=== PATIENT | female | born 1940 | race Caucasian/White ===

== ENCOUNTER 2022-02-25 09:26 | Outpatient (CLI) | payer MEDICARE, SELFPAY ==
--- NOTE | ~2022-02-25 | XR_ITS ---
EXAMINATION: XR barium swallow DATE: 02/25/2022 10:47 INDICATION: Aspiration pneumonia TECHNIQUE: The patient drank thick barium and gas producing crystals. Fluoroscopic spot radiographs o f the hypopharynx and esophagus were obtained. Fluoroscopy exposure time was 0.9 minutes. A total of 681 images were recorded. COMPARISON: None. FINDINGS: Limited study as patient was in significant pain and unable to tolerate a limited periods of time sta nding or in the supine or right lateral decubitus positions. Study was terminated due to patient disc omfort prior to assessing for gastroesophageal reflux. The pharynx is symmetric and without evidence of mass lesion or mucosal irregularity. There is recurrent laryngeal penetration to the level of the vocal cords which is evident in real-time. Upon review of the images there didn't appear to be an epi sode of silent aspiration with trace amount of contrast extending along the inferior surface of the v ocal cords. The esophagus is normal without mass or stricture. Esophageal motility is normal. Small h iatal hernia with gastroesophageal junction proximally 5 cm above level of the diaphragm. IMPRESSION: 1. Pharyngeal dysphagia with recurrent laryngeal penetration the thickened barium and trace amount of silent aspiration. Would recommend further evaluation with a formal modified swallow study. 2. Limited esophagram due to significant patient back and hip pain in multiple positions precluding c ompletion of a standard examination. 3. Small sliding-type hiatal hernia. Reviewed, dictated and finalized at location B. IMPRESSION: 1. Pharyngeal dysphagia with recurrent laryngeal penetration the thickened maverick um and trace amount of silent aspiration. Would recommend further evaluation wi th a formal modified swallow study. 2. Limited esophagram due to significant patient back and hip pain in multiple positions precluding completion of a standard examination. 3. Small sliding-type hiatal hernia.
== END 2022-02-25 09:27 | disposition home or self-care (01) ==
LOC: CHSIMG 09:32
PROVIDERS: PCP Physician Assistant; Visit Provider Physician Assistant
DX: Z87.01 Personal history of pneumonia (recurrent) (principal)
CPT/HCPCS: 74220

== ENCOUNTER 2022-03-04 08:13 | Outpatient (CLI) | payer MEDICARE, SELFPAY ==
--- NOTE | ~2022-03-04 | XR_ITS ---
MODIFIED ESOPHAGRAM HISTORY: Aspiration pneumonia. Weakness with swallowing. Dysphagia. TECHNIQUE: Modified barium esophagram was performed on 03/04/2022. I administered fluoroscopy and perf ormed the exam with speech pathologist. Patient was seated for lateral fluoroscopic imaging for armani stion of thin liquids, pudding, solids and quantified amounts, followed by thin liquids in uncontroll ed amounts. This was recorded on tape. A single fluoroscopic spot image was also recorded. The DAP fo r this procedure was 2.4 Gycm2. The amount of fluoroscopy time used during this procedure was 2.5 min utes. FINDINGS: Oral stage: Adequate function. Pharyngeal stage: Reduced laryngeal elevation and tongue base retraction. There was laryngeal penetra tion with the majority of the bowels with 2 episodes of silent aspiration with small amount of thin l iquid contrast. Cervical/esophageal stage: Adequate function. IMPRESSION: Laryngeal penetration with 2 episodes of small amount of silent aspiration. Please corre late with speech pathologist findings and specific feeding recommendations. Reviewed, dictated and finalized at location B. IMPRESSION: Laryngeal penetration with 2 episodes of small amount of silent asp iration. Please correlate with speech pathologist findings and specific feedin g recommendations.
--- NOTE | 2022-03-04 11:42 | STOPEVAL ---
Thank you for referring Kelley Bird to [facility].? The patient was seen for a modified barium swallow study evaluation this date. Referring Physician Date Admitting Provider: Attending Provider: Surya Suárez, ANTHONY Referring Provider: MODIFIED BARIUM SWALLOW STUDY *ST Outpatient Evaluation Start: 03/04/22 10:37 Freq: Status: Active Protocol: Document 03/04/22 08:30 MJB (Rec: 03/04/22 11:39 MJB [id number]) Therapy Assessment Status Assessment Status Assessment Status Evaluation Outpatient Past Medical History Past Medical History Source of Past Medical History Patient,Family/Significant Other Neurological History Hx Neurological Disorders No Significant History Cardiovascular History Hx Cardiac Disorders No Significant History Respiratory History Hx Chronic Obstructive Pulmonary Disease Yes: Currently on oxygen (COPD) Gastrointestinal History Hx Hernia Yes: hiatal hernia Genitourinary History Hx Genitourinary Disorders No Significant History Musculoskeletal History Hx Musculoskeletal Disorders No Significant History Hematological History Hx Hematological Disorders No Significant History Endocrine History Hx Other Endocrine Disorders Yes: nodule on thyroid removed with extensive swelling post op HEENT History Hx HEENT Disorders No Significant History Integumentary History Hx Skin Disorders No Significant History Reproductive History Hx Reproductive Disorders No Significant History Psychosocial History Hx Psychiatric Disorders No Significant History Pain History Has Past Pain Affected Your Daily Life Yes: back pain Anesthesia History Hx Anesthesia Reactions No Significant History Evaluation Information Problem Diagnosis hx of aspiration pneumonia Onset 2018 Subjective Information Patient has had pneumonia very Query Text:As Reported By Patient/ frequently along with surgery Family to thyroid with significant swelling. Daughter reported that recently the patient was evaluated by home health ST and they recommended an MBS due to difficulty swallowing thin cold fluids. They voiced no concerns with swallowing solids. Prior Level of Function Prior Swallow Level Prior Intake Method Oral Prior Diet Regular (Level 7 Diet) Prior Liquid Consistency Thin (Level 0 Diet) Pain Assessment Timing of Pain Assessment Timing of Pain Assessmen
== END 2022-03-04 08:14 | disposition home or self-care (01) ==
LOC: CHSIMG 08:17
PROVIDERS: PCP Physician Assistant; Visit Provider Physician Assistant
DX: Z87.01 Personal history of pneumonia (recurrent) (principal)
CPT/HCPCS: 92611

== ENCOUNTER 2022-04-02 11:31 | Outpatient (CLI) | payer MEDICARE, SELFPAY ==
--- NOTE | ~2022-04-02 | XR_ITS ---
XR chest 2V DATE: 04/02/2022 12:11 INDICATION: Shortness of breath. Chest burning. History of aspiration pneumonia. TECHNIQUE: PA and lateral views COMPARISON: None FINDINGS: There is also interstitial tissues in the lower lung zones bilaterally which may be due to interstitial fibrotic change versus interstitial pneumonitis or aspiration pneumonitis. Heart size is borderline. Aortic arch calcification and mild aortic unfolding. No pleural effusion or pulmonary vascular congestion or pneumothorax. Diffuse osteopenia. IMPRESSION: Increased interstitial prominence in the lower lung zones which may be due to interstitia l fibrotic change, interstitial pneumonitis or aspiration pneumonitis. Borderline heart size Aortic atherosclerosis Osteopenia Reviewed, dictated and finalized at location B. IMPRESSION: Increased interstitial prominence in the lower lung zones which may be due to interstitial fibrotic change, interstitial pneumonitis or aspiration pneumonitis. Borderline heart size Aortic atherosclerosis Osteopenia
--- NOTE | ~2022-04-02 | XR_ITS ---
XR abdomen obstructive series DATE: 04/02/2022 12:11 INDICATION: Constipation. Weakness. TECHNIQUE: Supine and upright AP views COMPARISON: None FINDINGS: Surgical clips, right upper quadrant, consistent with cholecystectomy. The psoas shadows are intact. No visceromegaly is detected. Nonspecific bowel gas pattern without suyapa dence of obstruction. No intraperitoneal free air is detected. Bilateral prominent hip osteoarthritis, greater on the right. Degenerative change of the thoracic and lumbar spine. IMPRESSION: Status post cholecystectomy Nonspecific abdomen Prominent bilateral hip osteoarthritis, greater on the right Reviewed, dictated and finalized at Location A. Reviewed, dictated and finalized at location B.
== END 2022-04-02 11:32 | disposition home or self-care (01) ==
LOC: CHSIMG 11:33
PROVIDERS: PCP Physician Assistant; Visit Provider Physician Assistant
DX: Z87.01 Personal history of pneumonia (recurrent) (principal); K59.00 Constipation, unspecified
CPT/HCPCS: 71046; 74019

== ENCOUNTER 2022-05-01 09:55 | Outpatient (RCR) | payer MEDICARE, SELFPAY ==
--- NOTE | 2022-05-01 13:46 | STOPEVAL ---
Thank you for referring Kelley Bird to [facility].? The patient is scheduled to be seen for therapy? 1x/week for 10 sessions. Please review, sign, date and return this plan of care GERONIMO. I agree with and certify that the following plan of care is medically necessary. Referring Physician Date Admitting Provider: Attending Provider: Isiah Bowles, Referring Provider: [facility] Outpatient Evaluation Start: 05/01/22 12:46 Freq: Status: Active Protocol: Document 05/01/22 10:00 MELANIE (Rec: 05/01/22 13:46 MELANIE [id number]) Therapy Assessment Status Assessment Status Assessment Status Evaluation Outpatient Past Medical History Past Medical History Source of Past Medical History Patient,Family/Significant Other Neurological History Hx Neurological Disorders No Significant History Cardiovascular History Hx Cardiac Disorders No Significant History Respiratory History Hx Chronic Obstructive Pulmonary Disease Yes: Currently on oxygen (COPD) Gastrointestinal History Hx Gastroesophageal Reflux Disease Yes Hx Hernia Yes: hiatal hernia Genitourinary History Hx Genitourinary Disorders No Significant History Musculoskeletal History Hx Musculoskeletal Disorders No Significant History Hematological History Hx Hematological Disorders No Significant History Endocrine History Hx Other Endocrine Disorders Yes: nodule on thyroid removed with extensive swelling post op HEENT History Hx HEENT Disorders No Significant History Integumentary History Hx Skin Disorders No Significant History Reproductive History Hx Reproductive Disorders No Significant History Psychosocial History Hx Psychiatric Disorders No Significant History Pain History Has Past Pain Affected Your Daily Life Yes: back pain Anesthesia History Hx Anesthesia Reactions No Significant History Evaluation Information Problem Diagnosis aspiration pneumonia Onset Subjective Information Patient was referred for ST Query Text:As Reported By Patient/ due to continuous difficulty Family swallowing and repeated pneumonia. Patient was seen for an MBS March 04 and presented with laryngeal penetration with thin and nectar fluids. Patient presented with aspiration 1x with thin fluid uncontrolled. Pain Assessment Timing of Pain Assessment Timing of Pain Assessment Assessment Self Report Self Report Pain Level 0 Pain Score Pain Score 0: S
--- NOTE | 2022-05-19 13:57 | PCSTNOTE ---
Patient called & cancelled scheduled appointment this date
--- NOTE | 2022-06-17 11:52 | PCSTNOTE ---
Patient called & cancelled scheduled appointment this date
--- NOTE | 2022-06-23 13:30 | PCSTNOTE ---
Patient did not show up for scheduled appointment this date.
--- NOTE | 2022-07-15 14:45 | PCSTNOTE ---
Voicemail left regarding continued care or to discharge patient from speech therapy.
--- NOTE | 2023-04-14 13:45 | BUSTOPDC ---
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 Patient and family reported that the patient has had difficulty swallowing for years now and has had pneumonia very often. She also has a history of a thyroid nodule with significant problems post surgery. Patient was seen for a total of 3 treatment sessions for the treatment of Dysphagia and then stopped coming. Phone call placed to patient and voicemail was left regarding plan but they did not return the call. Discharge patient from at this time.
== END 2022-06-23 23:59 | disposition home or self-care (01) ==
LOC: CHSST 09:55
PROVIDERS: PCP Family Medicine; Visit Provider Family Medicine
DX: Z87.01 Personal history of pneumonia (recurrent) (principal)
CPT/HCPCS: 92526; 92610

== ENCOUNTER 2023-02-27 22:32 | Emergency (ER) | payer MEDICARE, SELFPAY ==
[2023-02-27 22:34] VITALS: BP 144/69; PULSE 95; RESP 16; TEMP 36.9; O2SAT 93
--- NOTE | 2023-02-27 23:05 | ED.GENADULT ---
HPI - General Adult General Chief complaint: Eye Problems Stated complaint: Eye irritation Time Seen by Provider: 02/27/23 23:00 History of Present Illness HPI narrative: The patient is an 82-year-old woman with History of ankylosing spondylitis, COPD hypertension and ulcerative colitis per she was at the chiropractor today. She was face down on a table and then after she finished her session she noticed that her eyes started bothering her, with mucus drainage. The mucous drainage has continued from both eyes, right and left, right worse than left, this evening. She has been applying Refresh eye drops into both eyes. She has been rubbing her eyes since that time. The redness and mucous discharge has increased over the course of the evening. No blurred vision. No headache. No fevers. No other symptoms. Related Data Home Medications Medication Instructions Recorded Confirmed ezetimibe 10 mg tablet 10 mg PO DAILY 01/29/23 02/27/23 hydrochlorothiazide 25 mg tablet 25 mg PO DAILY 01/29/23 02/27/23 hydroxychloroquine 200 mg tablet 200 mg PO BID 01/29/23 02/27/23 losartan 25 mg tablet 25 mg PO DAILY 01/29/23 02/27/23 multivitamin 1 tablet PO DAILY 01/29/23 02/27/23 omega 0-vxk-xvd-fish oil 60 mg-90 1 cap PO DAILY 01/29/23 02/27/23 mg-500 mg capsule (Fish Oil) omeprazole 20 mg capsule,delayed 20 mg PO BID 01/29/23 02/27/23 release spironolactone 25 mg tablet 25 mg PO DAILY 01/29/23 02/27/23 ezetimibe 10 mg tablet 10 mg PO DAILY 02/27/23 02/27/23 Allergies Allergy/AdvReac Type Severity Reaction Status Date / Time aluminum Allergy Unknown Rash Verified 02/27/23 22:50 Review of Systems Review of Systems: All systems reviewed & are unremarkable except as noted in HPI and below Constitutional: Constitutional: Denies chills, Denies excessive sweating, Denies fatigue, Denies fever(s), Denies headache(s) and Denies weakness Eyes: Eyes: Denies blind spots, Denies blurry vision, Denies exophthalmos, Denies change in vision, Denies diplopia, Reports eye discharge, Reports irritation, Reports itchy eyes, Denies loss of vision and Denies photophobia ENT: Denies dysphagia, Denies dizziness, Denies headache(s), Denies lip swelling, Denies nasal congestion, Denies sore throat and Denies tongue swelling Cardiovascular: Cardiovascular: Denies chest pain, Denies syncope, Denies rapid heart rate and Denies dyspnea Respiratory: Respiratory: Denies cough, Denies dyspnea and Denies wheezing Gastrointestinal: Gastrointestinal: Denies abdominal pain, Denies constipation, Denies dysphagia, Denies diarrhea, Denies nausea and Denies vomiting Genitourinary: Genitourinary: Denies hematuria, Denies urinary frequency, Denies dysuria and Denies urinary urgency Musculoskeletal: Musculoskeletal: Denies back pain, Denies myalgias, Denies arthralgias, Denies joint swelling and Denies numbness Integumentary/Breasts: Skin/Breast: Denies pruritus, Denies erythema and Denies rash Neurologic: Denies confusion, Denies dizziness, Denies syncope, Denies headache(s), Denies focal weakness, Denies numbness and Denies weakness Psychiatric: Psychiatric: Denies anxiety and Denies confusion Endocrine: Endocrine: Denies excessive sweating and Denies fatigue Hematologic/Lymphatic: Hematologic/Lymphatic: Denies easy bleeding and Denies easy bruising Allergic/Immunologic: Allergic/Immunologic: Denies lip swelling, Denies tongue swelling and Denies wheezing PMFSH Past Medical History Medical History Ankylosing spondylitis COPD (chronic obstructive pulmonary disease) Hx of acute arthritis Hypertension Ulcerative colitis Family History Family History Mother Family history of osteoporosis Family history of Parkinson's disease Sibling Family history of pancreatic cancer Family history of malignant neoplasm of urinary bladder Social History Social History (
[2023-02-27] MEDS: TOBRAMYCIN SULFATE 0.3% OPHTH SOLN 5 ML 2 DROP EACH EYE (23:32)
[2023-02-28 00:06] VITALS: BP 142/71; PULSE 81; RESP 18; TEMP 36.8; O2SAT 97
== END 2023-02-28 00:10 | disposition home or self-care (01) ==
PROVIDERS: Emergency Provider Emergency Medicine; PCP Physician Assistant
DX: H10.9 Unspecified conjunctivitis (principal); I10 Essential (primary) hypertension; J44.9 Chronic obstructive pulmonary disease, unspecified
CPT/HCPCS: 99283; A9270

== ENCOUNTER 2024-10-14 16:03 | Emergency (ER) | payer MEDICARE, SELFPAY ==
[2024-10-14] VITALS (16 sets, daily range): BP systolic 103–137; BP diastolic 54–72; PULSE 72–98; RESP 18–23; TEMP 37.1; O2SAT 93–100
--- NOTE | ~2024-10-14 | XR_ITS ---
XR chest 1V portable 10/14/2024 16:24 Indication: Cough for 2 weeks Procedure: AP portable chest Comparison: 04/02/2022 Findings: Cardiomegaly. Heart size normal. Right basilar airspace disease is present which may repres ent atelectasis or developing pneumonia. Impression: 1: Right basilar infiltrates, atelectasis versus pneumonia. Reviewed, dictated and finalized at location B. NTORY TECHNICIAN Impression: 1: Right basilar infiltrates, atelectasis versus pneumonia.
--- NOTE | 2024-10-14 16:22 | ED_ITS ---
HPI - URI/Sore Throat General Chief Complaint: Upper Respiratory Infection Stated Complaint: cough Source: patient and family Mode of arrival: ambulatory Limitations: no limitations History of Present Illness HPI Narrative: 84 years old white female came to the ED by private car with her daughter complaining of dry cough, feeling sick over the last 10 days. Patient in a birthday green party in a restaurant with a lot of people most of them got sick few days later including the patient. Started yesterday on Levaquin, benzonate and nebulizer treatment by her family physician. She is not getting better. Patient supposed to be on 1 L of oxygen by nasal cannula as needed. History of COPD, hypertension, hyperlipidemia. Patient does not take anti- platelet or anti coagulant medication, does not smoke cigarettes. Related Data Home Medications ?Medication ?Instructions ?Recorded ?Confirmed ?Last Taken ?Type ezetimibe 10 mg tablet 10 mg PO DAILY 01/29/23 02/27/23 Unknown History hydrochlorothiazide 25 mg tablet 25 mg PO DAILY 01/29/23 02/27/23 Unknown History hydroxychloroquine 200 mg tablet 200 mg PO BID 01/29/23 02/27/23 Unknown History losartan 25 mg tablet 25 mg PO DAILY 01/29/23 02/27/23 Unknown History multivitamin 1 tablet PO DAILY 01/29/23 02/27/23 Unknown History omega 9-fmk-kbn-fish oil 60 mg-90 1 cap PO DAILY 01/29/23 02/27/23 Unknown History mg-500 mg capsule (Fish Oil) omeprazole 20 mg capsule,delayed 20 mg PO BID 01/29/23 02/27/23 Unknown History release spironolactone 25 mg tablet 25 mg PO DAILY 01/29/23 02/27/23 Unknown History ezetimibe 10 mg tablet 10 mg PO DAILY 02/27/23 02/27/23 Unknown History Allergies Allergy/AdvReac Type Severity Reaction Status Date / Time aluminum Allergy Unknown Rash Verified 02/27/23 22:50 Review of Systems 2 Review of Systems: All systems reviewed & are unremarkable except as noted in HPI and below PMFSH Past Medical History Medical History Ankylosing spondylitis Ulcerative colitis Hypertension COPD (chronic obstructive pulmonary disease) Hx of acute arthritis Family History Family History Mother Family history of osteoporosis Family history of Parkinson's disease Sibling Family history of pancreatic cancer Family history of malignant neoplasm of urinary bladder Social History Social History Smoking status: Never smoker Alcohol intake: never Substance use: never Substance use type: does not use Exam 2 Narrative: General appearance: Well-developed, well-nourished Skin: Normal color Head: Normocephalic, nontraumatic Eyes: Clear conjunctiva ENT: Oropharynx normal, ears normal, nose normal Neck: Supple, nontender Chest and respiratory: Airway patent, no respiratory distress, no accessory muscle use , few expiratory wheezing bilaterally Heart: Regular rate/rhythm Abdomen: Soft, nontender, no organomegaly, quiet bowel sounds Vascular: Normal peripheral pulses, normal capillary refill. 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, no gross motor deficit Course Vital Signs Vital signs: Vital Signs Temperature 37.1 C 10/14/24 16:03 Pulse Rate 94 10/14/24 16:03 Respiratory Rate 18 10/14/24 16:03 Blood Pressure 131/72 10/14/24 16:03 Pulse Oximetry 93 10/14/24 16:03 Oxygen Delivery Room Air 10/14/24 16:03 Temperature 37.1 C 10/14/24 16:03 Pulse Rate 98 10/14/24 16:38 Respiratory Rate 23 H 10/14/24 16:38 Blood Pressure 131/72 10/14/24 16:03 Pulse Oximetry 98 10/14/24 16:30 Oxygen Delivery Nasal Cannula 10/14/24 16:10 Oxygen Flow Rate 1 10/14/24 16:10 MDM - URI/Sore Throat MDM Narrative Medical decision making narrative: patient presents with upper respiratory viral infection like symptoms started 10 days ago. Vital signs are stable Physical examination showing scattered wheezing bilaterally, expiratory Workup today included Chest x-ray which showed atelectasis versus pneumonia Respiratory panel for COVID, flu and RSV came back negative, Blood workup today includes CBC, CMP showed no significant abnormality Blood gas on 1 L of oxygen by nasal cannula showing ox saturation of 97.3% Patient started on Levaquin, benzonatate and nebulizer treatment yesterday by her family physician. The advice was to continue the above medications and to start prednisone 40 mg once a day for the next 5 days. The pt was discharged to home.the pt,s condition upon discharge was fair,education was provided to the pt in reference to the final impression,discharge study results,treatment,prognosis and need for follow up . Differential Diagnosis Differential diagnosis: Likely upper respiratory infection, viral infection, bronchitis and other ( COPD exacerbation) Medical Records Attestation: I reviewed the patient's medical records. Lab Data Attestation: I reviewed the patient's lab results. 10/14/24 16:51 10/14/24 16:50 Labs: Lab Results 10/14/24 10/14/24 10/14/24 Range/Units 16:11 16:50 16:51 WBC 7.8 (4.8-10.8) K/mm3 RBC 4.27 (4.20-5.40) M/mm3 Hgb 12.4 (11.7-13.8) g/dL Hct 38.6 (35.0-42.0) % MCV 90.4 (78.0-102.0) fL MCH 29.0 (27.0-31.0) pg MCHC 32.1 (32-36) g/dL RDW 14.3 (11.6-14.4) % Plt Count 280 (150-420) K/mm3 MPV 8.9 L (9.2-11.8) fl Immature Gran % (Auto) 1.7 H (0.0-0.0) % Neut % (Auto) 51.4 (50.0-70.0) % Lymph % (Auto) 29.5 (18.0-42.0) % [place] % (Auto) 8.6 (2.0-11.0) % Eos % (Auto) 7.9 H (1.0-6.0) % Baso % (Auto) 0.9 (0.0-1.0) % Lymph # (Auto) 2.30 (1.10-4.50) K/mm3 [place] # (Auto) 0.67 (0.10-0.90) K/mm3 Eos # (Auto) 0.62 H (0.02-0.50) K/mm3 Baso # (Auto) 0.07 (0.00-0.10) K/mm3 Abs Immat Gran (auto) 0.13 H (0.00-0.00) K/mm3 Absolute Neuts (auto) 4.01 (1.70-7.20) K/mm3 Absolute Nucleated RBC 0.00 (0.00-0.00) K/mm3 Nucleated RBC % 0.0 (0-0.0) % Sodium 141 (136-145) mmol/L Potassium 3.8 (3.5-5.1) mmol/L Chloride 99 (98-108) mmol/L Carbon Dioxide 30 (21-32) mmol/L Anion Gap 12 (4-12) mmol/L BUN 18 (7-18) mg/dL Creatinine 0.96 (0.55-1.02) mg/dL Estim Creat Clear Calc 46 ml/min Estimated GFR 55 L (59 - ) Glucose 85 (70-99) mg/dL Calculated Osmolality 292 (285-295) mOsm/kg Lactic Acid 1.9 (0.4-2.0) mmol/L Calcium 9.3 (8.5-10.1) mg/dL Total Bilirubin 0.4 (0.00-1.00) mg/dL AST 24 (15-37) U/L ALT 34 (14-59) U/L Alkaline Phosphatase 84 (46-116) U/L C-Reactive Protein < 0.5 (0.0-0.9) mg/dL Total Protein 6.9 (6.4-8.2) g/dL Albumin 3.5 (3.4-5.0) g/dL Influenza A (RT-PCR) Negative (Negative) Influenza B (RT-PCR) Negative (Negative) RSV (RT-PCR) Negative (Negative) SARS-CoV-2 RNA (RT-PCR) Negative (Negative) ABG Data ABG results: 10/14/24 16:51 Puncture Site Right radial ABG pH 7.54 H ABG pCO2 29.6 L ABG pO2 94.7 H ABG PO2/FiO2 Ratio Not Reportable ABG HCO3 24.7 ABG O2 Saturation 97.3 H ABG O2 Content 17.8 ABG Base Excess 2.9 H A-a Gradient Not Reportable Oxyhemoglobin 96.7 O2 Delivery Device Nasal cannula O2 Liters/Min 1.0 Attestation: I personally reviewed and interpreted this ABG as follows: Imaging Data Attestation: I personally reviewed and interpreted this imaging study as follows: Radiologist's impression: Impressions Chest X-Ray 10/14/24 16:25 Impression: 1: Right basilar infiltrates, atelectasis versus pneumonia. Critical Care Time Critical Care Time Critical Care Time: No Discharge Plan Discharge Clinical Impression: COPD (chronic obstructive pulmonary disease), Pneumonia Patient Disposition: Home, Self-Care Condition: Stable Instructions: COPD (Chronic Obstructive Pulmonary Disease) (DC), Community Acquired Pneumonia (DC) Additional Instructions: Return if symptoms are worsening , call your family physician for appointment, take Tylenol as as needed for aches and pain, continue home medications. Continue home Levaquin, nebulizer treatment, and home oxygen at 1 L by nasal cannula all the time Patient Language: Slovenian Prescriptions: New prednisone 20 mg tablet 40 mg PO DAILY 5 Days Qty: 10 0RF benzonatate 100 mg capsule 100 mg PO TID PRN (Reason: cough) Qty: 30 0RF No Action ezetimibe 10 mg tablet 10 mg PO DAILY erythromycin 5 mg/gram (0.5 %) ointment 1 cm EACH EYE BID 14 Days Qty: 3.5 1RF ezetimibe 10 mg tablet 10 mg PO DAILY hydrochlorothiazide 25 mg tablet 25 mg PO DAILY hydroxychloroquine 200 mg tablet 200 mg PO BID losartan 25 mg tablet 25 mg PO DAILY omeprazole 20 mg capsule,delayed release(DR/EC) 20 mg PO BID spironolactone 25 mg tablet 25 mg PO DAILY multivitamin Tablet 1 tablet PO DAILY omega 0-bfz-tpd-fish oil [Fish Oil] 60-90-500 mg capsule 1 cap PO DAILY Follow-up/Referrals: Jose Armando,ANTHONY [place] [Primary Care Provider] -
[2024-10-14] MEDS: predniSONE 20 MG TABLET 60 MG PO (16:29)
[2024-10-14] MEDS: IPRATROPIUM 0.5 MG/ALBUTEROL SULFATE 2.5 MG AMPUL.NEB 3 ML INHALATION (16:33)
--- NOTE | 2024-10-14 16:33 | ECG_ITS ---
Test Date: 2024-10-14 16:48:31 Measurements Intervals [place] Rate: 96 P: 52 LA: 197 QRS: 57 QRSD: 120 T: 35 QT: 378 QTc: 480 Interpretive Statements SINUS RHYTHM WITH SINUS ARRHYTHMIA MODERATE INTRAVENTRICULAR CONDUCTION DELAY [110+ ms QRS DURATION] ABNORMAL ECG No previous ECG available for comparison Electronically Signed On 10-15-2024 10:21:10 [employer] ENGINEER by Sergio Duron M.D.
[2024-10-14 16:52] LABS: Base Excess ABG 2.9 mmol/L (0-2); HCO3 ABG 24.7 mmol/L (23-29); Oxygen Content ABG 17.8 %vol (16.0-22.0); Oxygen Saturation ABG 97.3 % (95-97); Oxyhemoglobin 96.7 % (94-100); PCO2 ABG 29.6 mmHg (35-45); PO2 ABG 94.7 mmHg (75-85); pH ABG 7.54 (7.35-7.45)
[2024-10-14 16:54] LABS: Device NASAL CANNULA; Modified Allen's Test Pass; Site Drawn RIGHT RADIAL
[2024-10-14 16:55] LABS: Basophils Absolute Auto 0.07 K/mm3 (0.00-0.10); Basophils Percent Auto 0.9 % (0.0-1.0); Eosinophils Absolute Auto 0.62 K/mm3 (0.02-0.50); Eosinophils Percent Auto 7.9 % (1.0-6.0); Hematocrit 38.6 % (35.0-42.0); Hemoglobin 12.4 g/dL (11.7-13.8); Immature Granulocyte Absolute 0.13 K/mm3 (0.00-0.00); Immature Granulocyte Percent A 1.7 % (0.0-0.0); Lymphocytes Percent Auto 29.5 % (18.0-42.0); Mean Corpuscular HGB Conc 32.1 g/dL (32-36); Mean Corpuscular Volume 90.4 fL (78.0-102.0); Mean Platelet Volume 8.9 fl (9.2-11.8); Monocytes Absolute Auto 0.67 K/mm3 (0.10-0.90); Monocytes Percent Auto 8.6 % (2.0-11.0); Neutrophils Absolute Auto 4.01 K/mm3 (1.70-7.20); Neutrophils Percent Auto 51.4 % (50.0-70.0); Platelet Count Result 280 K/mm3 (150-420); Red Blood Count 4.27 M/mm3 (4.20-5.40); Red Cell Distribution Width 14.3 % (11.6-14.4); White Blood Count 7.8 K/mm3 (4.8-10.8)
[2024-10-14 17:05] LABS: Influenza A QL RT-PCR Negative (Negative); Influenza B QL RT-PCR Negative (Negative); RSV RNA, RT-PCR Negative (Negative); SARS-CoV-2 RNA PCR Negative (Negative)
[2024-10-14 17:11] LABS: Alanine Aminotransferase 34 U/L (14-59); Albumin Level 3.5 g/dL (3.4-5.0); Alkaline Phosphatase 84 U/L (46-116); Anion Gap 12 mmol/L (4-12); Aspartate Amino Transferase 24 U/L (15-37); Bilirubin,Total 0.4 mg/dL (0.00-1.00); Blood Urea Nitrogen 18 mg/dL (7-18); Calcium 9.3 mg/dL (8.5-10.1); Carbon Dioxide 30 mmol/L (21-32); Chloride 99 mmol/L (98-108); Estimated CRCL calculation 46 ml/min; Estimated Glomerular Filt Rate 55; Glucose 85 mg/dL (70-99); Osmolality Calculated 292 mOsm/kg (285-295); Potassium 3.8 mmol/L (3.5-5.1); Sodium 141 mmol/L (136-145); Total Protein 6.9 g/dL (6.4-8.2)
[2024-10-14 17:14] LABS: Lactic Acid Reflex 1.9 mmol/L (0.4-2.0)
[2024-10-14 17:14] LABS: CRP < 0.5 mg/dL (0.0-0.9)
--- NOTE | 2024-10-15 14:20 | PC.NURSE ---
final blood cultures x2 reviewed. no growth to date
--- NOTE | 2024-10-15 14:30 | PC.NURSE ---
blood culture reports x2 reviewed. no growth to date
== END 2024-10-14 17:53 | disposition home or self-care (01) ==
PROVIDERS: Emergency Provider Emergency Medicine; PCP Physician Assistant
DX: J18.9 Pneumonia, unspecified organism (principal); J44.0 Chronic obstructive pulmonary disease with (acute) lower respiratory infection; I10 Essential (primary) hypertension; E78.5 Hyperlipidemia, unspecified; Z20.822 Contact with and (suspected) exposure to COVID-19
CPT/HCPCS: 36415; 36600; 71045; 80053; 82805; 83605; 85018; 85025; 86140; 87040; 87637; 93005; 94640; 99283; J7512

== ENCOUNTER 2024-10-31 14:47 | Outpatient (CLI) | payer MEDICARE, SELFPAY ==
--- NOTE | ~2024-10-31 | XR_ITS ---
CHEST RADIOGRAPH, PA AND LATERAL CLINICAL HISTORY: Pneumonia re-check, 3.5 week cough, sob . COMPARISON: 10/14/2024 and dating back to 04/02/2022 TECHNIQUE: PA and lateral views of the chest. FINDINGS The cardiomediastinal silhouette is unremarkable. The lungs are clear. Visualized osseous structures and soft tissues are unremarkable. IMPRESSION: No focal infiltrate or effusion. Reviewed, dictated and finalized at location A. ET SETTER
--- OUTSIDE RECORDS SUMMARY | 2024-10-31 15:44 | XMS_ITS | Clinical Summary ---
Author Organization [facility] Address [address] [place] [address] Care Team Providers Care It Desktop Support Specialist Name Role Phone Nathaniel Hartman MD Primary Care Provider [phone] Source Comments [facility],non-owned Affiliates and Associated Physician Practices is amultiple site organization consisting of ambulatory clinics and hospital sitesin [place], [place], [place] and [place]. This disclosure is being madepursuant to the Care Everywhere program and may not contain all information available regarding this patient. Last updated 18.[facility] Social History Tobacco Use Types Packs/Day Years Used Date Smoking Tobacco: Never Assessed Sex and Gender Information Value Date Recorded Sex Assigned at Not on file Gender Identity Not on file Sexual Orientation Not on file Plan of Treatment Health Maintenance Due Date Last Done Comments BONE DENSITY TESTING 1940 MEDICARE AWV ? 12 MONTHS 1940 DTAP/TDAP/TD VACCINES (1 - Tdap) 1959 PNEUMOCOCCAL VACCINE 50+ (1 of 1 - PCV) 1990 ZOSTER VACCINE (1 of 2) 1990 Respiratory Syncytial Virus (RSV) Vaccine Pt: or over 60 yrs (1 - 1-dose 75+ series) 2015 COVID-19 VACCINE ( - 2023-2 5 season) 2024 INFLUENZA VACCINE (#1) 2024 DEPRESSION SCREENING 10/05/2024 HEPATITIS B VACCINE Aged Out No longe r eligible based on patient's age to complete this topic HIB VACCINE Aged Out No longer eligi ble based on patient's age to complete this topic HPV VACCINE Aged Out No longer eligi ble based on patient's age to complete this topic MENINGOCOCCAL (Group B) VACCINE Aged Out No longer eligible based on patient's age to complete this topic MENINGOCOCCAL VACCINE Aged Out No luzmaria bonnie eligible based on patient's age to complete this topic Insurance Payer Benefit Plan / Group Subscriber ID Effective Dates Phone Address Type MEDICARE WPS MEDICARE PART B [id number] 2005-Pres ent [address] [address] [place] [address] Medicare [employer] [place] [employer] [place] [facility] [id number] Effective for all dates [address] [employer] [place] [address] Commercial MEDICARE MEDICARE PART A AND B [id number] Effective for all dates [id number] [address] [place] [address] Medicare HUMANA HUMANA MEDICARE SUPPLEMENT [id number] 2014-Pres ent [id number] [address] [address] [place] [address] Commercial Care Teams It Desktop Support Specialist Relationship Specialty Start Date End Date Nathaniel Hartman MD [address] [place] [phone] PCP - General Family Medicine 03/11/16
--- OUTSIDE RECORDS SUMMARY | 2024-10-31 15:44 | XMS_ITS | Referral Summary ---
Author Organization [place] [id number] Address [address] [place] [phone] Phone Care Team Providers Care Esl Instructor Name Role Phone Surya Suárez Primary Care Provider Allergies Active Allergy Reactions Criticality Noted Date Comments Aluminum Rash Medium 09/22/2019 Dexamethasone Dizziness Low 09/22/2019 Nausea and vomiting Medications ezetimibe (ZETIA) 10 mg tablet Take 1 tablet (10 mg total) by mouth daily Active omeprazole OTC (PriLOSEC OTC) 20 mg EC tablet Take 1 tablet (20 mg total) by mouth 2 (two) times a day Active hydroCHLOROthia zide (HYDRODIURIL) 25 mg tablet Take 1 tablet (25 mg total) by mouth daily Active losartan (COZAAR) 25 mg tablet Take 1 tablet (25 mg total) by mouth daily Active multivitamin capsule Take 1 capsule by mouth daily Active hydroxychloroqu ine (PLAQUENIL) 200 mg tablet Take 1 tablet (200 mg total) by mouth 2 (two) times a day Active albuterol HFA (PROVENTIL HFA,VENTOLIN HFA,PROAIR HFA) 90 mcg/actuation inhaler Inhale 2 puffs every 6 (six) hours as needed for wheezing Active fluticasone propionate (FLONASE) 50 mcg/actuation nasal sprayIndication s:Nasal polyposis Administer 2 sprays into each nostril daily 16 g 11 1 Active famotidine (PEPCID) 40 mg tabletIndicatio ns:Laryngophary ngeal reflux (LPR) Take 1 tablet (40 mg total) by mouth nightly 90 tablet 3 Active Additional Information Patient not taking.Reported on 02/04/2023 aspirin 81 mg chewable tablet Take 1 tablet (81 mg total) by mouth daily Active Active Problems Problem Noted Date Diagnosed Date Bilateral impacted cerumen 06/22/2024 Assessment & Plan (06/22/2024 2:49 PM CDT): Continue Hearing aids Follow up in one year for ear check and thyroid check Pharyngoesophageal dysphagia 02/05/2023 Assessment & Plan (02/05/2023 10:09 PM CDT): TSH Ultrasound Thyroid, s/p Right thyroid lobectomy Modified Barium swallow Acquired hypothyroidism 02/05/2023 Assessment & Plan (02/05/2023 10:09 PM CDT): TSH Ultrasound Thyroid, s/p Right thyroid lobectomy Modified Barium swallow Memory loss 05/20/2021 Acute recurrent maxillary sinusitis 05/13/2021 Assessment & Plan (05/13/2021 1:42 PM CDT): Continue Pepcid Will start Cefdinir 300 mg twice daily for 14 days Continue omeprazole Microdirect laryngoscopy with removal of Right Vocal process mass Risks and complications discussed including anesthesia, bleeding, infection, injury to lips, teeth, tongue and gums, injury to larynx and surrounding structures, benign versus malignant pathology, need for further treatment. All questions were answered and patient agreed to proceed. Vocal process granuloma 04/01/2021 Assessment & Plan (05/13/2021 9:17 PM CDT): Continue Pepcid Will start Cefdinir 300 mg twice daily for 14 days Continue omeprazole Microdirect laryngoscopy with removal of Right Vocal process mass Risks and complications discussed including anesthesia, bleeding, infection, injury to lips, teeth, tongue and gums, injury to larynx and surrounding structures, benign versus malignant pathology, need for further treatment. All questions were answered and patient agreed to proceed. Assessment & Plan (04/01/2021 2:30 PM CDT): TSH today - call with results Right vocal process granuloma Continue omeprazole daily Start Pepcid at bedtime Follow up in 6-8 weeks to recheck Right vocal process granuloma Nasal polyposis 02/13/2021 Assessment & Plan (04/01/2021 2:30 PM CDT): TSH today - call with results Right vocal process granuloma Continue omeprazole daily Start Pepcid at bedtime Follow up in 6-8 weeks to recheck Right vocal process granuloma Assessment & Plan (02/13/2021 2:09 PM CDT): Nasal saline spray (Simply saline, [place], [place], [place]) 2 second sprays or 2 squeezes into each nostril while looking down over the sink, do not need to sniff in. Followed Flonase 2 sprays into each nostril while looking down over the sink, do not sniff in or blow nose after use for at least 30 minutes daily Thyroid nodule 10/18/2020 Assessment & Plan (06/22/2024 2:49 PM CDT): Thyroid Ultrasound Assessment & Plan (02/04/2023 2:50 PM CDT): TSH Ultrasound Thyroid, s/p Right thyroid lobectomy Modified Barium swallow Centralized Scheduling: Assessment & Plan (03/12/2021 3:27 PM CDT): Follow up in 6 weeks with TSH right before follow up Assessment & Plan (03/01/2021 1:38 PM CDT): Continue Keflex 500 mg twice daily for 10 days Follow up in 10 days to recheck [place] for pain as needed Tylenol as well as needed Aquaphor ointment to skin at blister areas Continue Ice pack Assessment & Plan (02/13/2021 2:05 PM CDT): Right Thyroid Lobectomy with Nerve Monitoring Anesthesia, bleeding, infection, injury to major and minor arteries, nerves and veins, scar formation, injury to calcium regulating glands, injury to recurrent laryngeal nerve and resulting hoarseness, benign versus malignant pathology and need for further treatment. 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 Patient was started on doxycycline which will continue at this time. Will start patient on Solu-Medrol. Continue with breathing treatments. P.r.n. Robitussin. Respiratory virus panel is pending. Cough 08/06/2019 Elevated lactic acid level 08/06/2019 Assessment & Plan (08/06/2019 9:46 PM CDT): Likely related to infection and possible hypoxia with prolonged coughing. Improving at this time. Will start patient on IV fluids and continue to monitor. Laryngopharyngeal reflux (LPR) 08/06/2019 Assessment & Plan (04/01/2021 2:30 PM CDT): TSH today - call with results Right vocal process granuloma Continue omeprazole daily Start Pepcid at bedtime Follow up in 6-8 weeks to recheck Right vocal process granuloma Assessment & Plan (08/06/2019 9:47 PM CDT): Continue PPI Acute bronchitis due to other specified organism s 02/12/2018 Assessment & Plan (02/12/2018 3:56 PM CDT): Patient has intractable cough with significant dyspnea, shortness of breath and shakiness due to hypoxia that happens with the cough. Will continue steroids IV, bronchodilators, Tessalon scheduled. Lactic acidosis 02/12/2018 Assessment & Plan (02/12/2018 3:58 PM CDT): Unclear etiology. She also has anion gap elevation. Unclear if this is related to her ulcerative colitis. Will monitor lactic acid levels. Will continue her ulcerative colitis treatment. Sinus tachycardia 02/12/2018 Assessment & Plan (08/06/2019 9:48 PM CDT): Chronic issue. Metoprolol has been resumed with hold parameters. Likely exacerbated by bouts of coughing. Continue monitor. Assessment & Plan (02/12/2018 4:03 PM CDT): She has history of goiter, will check TSH and free T4. I would like to also start her on beta-ole. Atelectasis of left lung 02/12/2018 Assessment & Plan (02/12/2018 4:06 PM CDT): Will start incentive spirometry Dehydration 11/13/2017 Diarrhea of presumed infectious origin 8 Vertigo 11/13/2017 Hypokalemia 11/13/2017 Ulcerative colitis 11/13/2017 Assessment & Plan (08/06/2019 9:47 PM CDT): Patient was on sulfasalazine however that was discontinued in April as she was also diagnosed with dormant lupus. Daughter states patient is supposed to start a new medication but has not yet due to insurance coverage. She should be able to start a new medication in October. Assessment & Plan (02/12/2018 3:57 PM CDT): Continue sulfasalazine Nausea & vomiting 11/13/2017 Undifferentiated inflammatory arthritis (CMS/HCC ) 03/17/2017 Assessment & Plan (03/30/2018 4:28 PM CDT): Patient disease activity is moderate on 3 tabs ssz BID. Denies joint pain, but admits to joint stiffness. She reports the stiffness is worse as the day does on. Patient is to stay on the ssz for now. Will give her samples of pennsaid to try She has a nodule on her thyroid and will be having surgery in the future. She was also recently hospitalized for bronchitis. Given this, we won't change her medications at this time. Will check routine labs today. We will repeat some of her work up to monitor for change in serologies. Follow up in 8 wks, sooner if needed Assessment & Plan (03/17/2017 4:53 PM CDT): High disease activity with ssz 1500mg daily. Higher doses interfere with her sleep. Could consider trying biologics. Negative quant gold 09/19. Declines triamcinolone today due to having one with ortho a few weeks ago. Encounter for long-term (current) use of medicat ions 03/17/2017 Assessment & Plan (03/30/2018 4:22 PM CDT): Will continue to monitor w/ routine labs Assessment & Plan (03/17/2017 3:58 PM CDT): Labs today. Repeat serologies and AVISE panel. Check hand u/s as well. Pt seen with Dr. Dasilva. F/u 1 month, sooner if needed. Hypertension, essential 03/11/2016 Overview (01/15/2017): HTN - Hypertension Assessment & Plan (08/06/2019 9:44 PM CDT): Blood pressures are little elevated. Metoprolol and will start have been resumed with hold parameters. Holding hydrochlorothiazide due to lactic acidosis and IV fluid administration. Continue to monitor. Assessment & Plan (02/12/2018 3:56 PM CDT): Continue home medications and monitor. Difficulty breathing 03/11/2016 Overview (01/15/2017): Difficulty breathing Diplopia High serum lactate Atypical pneumonia Hyperlipidemia Morbid obesity with BMI of 45.0-49.9, adult Social History Tobacco Use Types Packs/Day Years Used Date Smoking Tobacco: Never Smokeless Tobacco: Never Tobacco Cessation:Counseling Given: Not Answered Comments:Second hand tobacco exposure Alcohol Use Standard Drinks/Week Comments Never 0 (1 standard drink = 0.6 oz pur e alcohol) AUDIT-C Answer Date Recorded Q1: How often do you have a drink containing alc ohol? Never 02/21/2021 Average Number of Drinks Not on file 021 Frequency of Binge Drinking Not on file 02/03 PHQ-2 Answer Date Recorded PHQ-2 Score 0 08/06/2019 Comments No Sex and Gender Information Value Date Recorded Sex Assigned at Not on file Legal Sex Female 4:05 AM MANAGER STUDIO Gender Identity Female 02/26/2023 1:42 PM CDT Sexual Orientation Not on file Last Filed Vital Signs Vital Sign Reading Time Taken Comments Blood Pressure 122/53 06/22/2024 2:19 PM CDT Pulse 67 06/22/2024 2:19 PM CDT Temperature 35.6 ??C (96.1 ??F) 02/04/2023 2:11 PM CD T Respiratory Rate 18 06/22/2024 2:19 PM CDT Oxygen Saturation 97% 06/22/2024 2:19 PM CDT Inhaled Oxygen Concentration - - Weight 100.2 kg (221 lb) 06/22/2024 2:19 PM CDT Height 160 cm (5' 2.99 ) 06/22/2024 2:19 PM CDT Body Mass Index 39.16 06/22/2024 2:19 PM CDT Plan of Treatment Not on file Insurance MEDICARE [employer]ET[employer] MEDICARE [facility] MEDICARE [facility] COMMERCIAL GENERIC MEDICARE [facility] Advance Directives For more information, please contact: [phone] * Full Code (Latest Code Status on File) Date Activated Date Inactivated Comments 09/22/2019 8:13 PM 09/24/2019 3:58 PM * Full Code Date Activated Date Inactivated Comments 09/22/2019 1:19 AM 09/22/2019 4:41 PM * Full Code Date Activated Date Inactivated Comments 08/06/2019 7:57 PM 08/08/2019 8:05 PM * Full Code Date Activated Date Inactivated Comments 02/12/2018 5:57 AM 02/13/2018 6:26 PM * Full Code Date Activated Date Inactivated Comments 11/13/2017 2:45 PM 11/16/2017 9:03 PM Care Teams Esl Instructor Relationship Specialty Start Date End Date Surya Suárez PA [address] [place], [place] [id number] PCP - General Physician Supervisor Hard Candy 10/18/20
--- OUTSIDE RECORDS SUMMARY | 2024-10-31 15:44 | XMS_ITS | Encounter Summary ---
Author Organization [facility] Address [address] [facility] [place] [address] Phone Care Team Providers Care Industrial Engineering Manager Name Role Phone Surya Suárez Jigna [facility] Primary Care Provider [phone] Reason for Visit * Reason Comments Medication Refill Encounter Details Date Type Department Care Team (Late st Contact Info) Description 01/10/2022 Refill [facility] - Endocrinology - [place] [address] [place] [phone] Rosalee Rodríguez MD [address] [phone] Medication Refill Social History Tobacco Use Types Packs/Day Years Used Date Smoking Tobacco: Passive Smo ke Exposure - Never Smoker Smokeless Tobacco: Never Comments: smoked 2 pa cks/day Alcohol Use Standard Drinks/Week Comments No 0 (1 standard drink = 0.6 oz pur e alcohol) Comments No Sex and Gender Information Value Date Recorded Sex Assigned at Not on file Legal Sex Female 10:49 AM CDT Gender Identity Not on file Sexual Orientation Not on file documented as of this encounter Plan of Treatment Not on file documented as of this encounter Visit Diagnoses Not on filedocumented in this encounter Care Teams Industrial Engineering Manager Relationship Specialty Start Date End Date Surya Suárez, [facility] [address] [place] [phone] PCP - General Family Medicine 10/13/21 documented as of this encounter
--- OUTSIDE RECORDS SUMMARY | 2024-10-31 15:44 | XMS_ITS | Referral Summary ---
Author Organization [facility] Address [address] [place] [address] Care Team Providers Care Diamond Sorter Name Role Phone Nathaniel Hartman MD Primary Care Provider [phone] Source Comments [facility],non-[facility] Affiliates and Associated Physician Practices is amultiple site organization consisting of ambulatory clinics and hospital sitesin [place], [place], [place] and [place]. This disclosure is being madepursuant to the Care Everywhere program and may not contain all information available regarding this patient. Last updated 18.[facility] [employer] Social History Tobacco Use Types Packs/Day Years Used Date Smoking Tobacco: Never Assessed Sex and Gender Information Value Date Recorded Sex Assigned at Not on file Gender Identity Not on file Sexual Orientation Not on file Plan of Treatment Not on file Insurance Payer Benefit Plan / Group Subscriber ID Effective Dates Phone Address Type MEDICARE WPS MEDICARE PART B [id number] 2005-Pres ent [address] [address] [place] [address] Medicare [employer] [place] [employer] [place] [facility] [id number] Effective for all dates [address] [place] [address] Commercial MEDICARE MEDICARE PART A AND B [id number] Effective for all dates [address] [place] [address] Medicare HUMANA HUMANA MEDICARE SUPPLEMENT [id number] 2014-Pres ent [address] [address] [place] [address] Commercial Care Teams Diamond Sorter Relationship Specialty Start Date End Date Nathaniel Hartman MD [address] [place] [phone] PCP - General Family Medicine 03/11/16
--- OUTSIDE RECORDS SUMMARY | 2024-10-31 15:44 | XMS_ITS | Patient Health Summary ---
Author Organization [facility] Address [address] [place] [address] Care Team Providers Care Chief Recordist Name Role Phone Nathaniel Hartman MD Primary Care Provider [phone] Note from [facility],non-owned Affiliates and Associated Physician Practices is amultiple site organization consisting of ambulatory clinics and hospital sitesin [place], [place], [place] and [place]. This disclosure is being madepursuant to the Care Everywhere program and may not contain all information available regarding this patient. Last updated 18.[facility] Social History Tobacco Use Types Packs/Day Years Used Date Smoking Tobacco: Never Assessed Sex and Gender Information Value Date Recorded Sex Assigned at Not on file Gender Identity Not on file Sexual Orientation Not on file Procedures * PT-INR(Performed 12/30/2018) * XR HAND BILAT 2VW(Performed 03/11/2016) Performed for Pain in joint, multiple sites * XR WRIST BILAT 2VW(Performed 03/11/2016) Performed for Pain in joint, multiple sites * XR SI JOINTS 2VW OR LESS(Performed 03/11/2016) Performed for Pain in joint, multiple sites * XR ANKLE BILAT 2VW(Performed 03/11/2016) Performed for Pain in joint, multiple sites * XR CHEST 2VW(Performed 03/11/2016) Performed for Pain in joint, multiple sites * XR FOOT BILAT 2VW(Performed 03/11/2016) Performed for Pain in joint, multiple sites Results * (ABNORMAL) PT-INR (12/30/2018 6:15 AM CDT) PT 19.3(H) 9.4 - 12.5 sec 12/30/2018 3:46 PM CDT [facility] INR 1.92(H) 0.82 - 1.08 12/30/2018 3:46 PM CDT [facility] Blood BLOOD SPECIMEN / Unknown Venipuncture / Unknown 12/30/2018 6:15 AM CDT 12/30/2018 3:12 PM CDT Narrative [facility] - 12/30/2018 3:46 PM CDT INR INTERPRETATION For most therapy and prophylaxis ? 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 Narrative 03/11/2016 3:53 PM CDT EXAMINATION: Bilateral hand radiographs, 2 views Bilateral wrist radiographs, 2 views Bilateral foot radiographs, 2 views Bilateral ankle radiographs, 2 views Sacroiliac joint radiographs, 3 views HISTORY: Joint pain. COMPARISON: No prior study is available for comparison. FINDINGS: Hands: There is narrowing of the distal interphalangeal joint spaces and the degree of the proximal interphalangeal joint spaces secondary to osteoarthritis. Wrists: The joint spaces are maintained. There are a few small subchondral cysts in the left lunate. Feet: The joint spaces are maintained. There is a small left plantar calcaneal enthesophyte. Ankles: The joint spaces are maintained and the ankle mortises appear intact. Sacroiliac joints: There is mild sclerosis along bilateral sacroiliac joints with intra-articular vacuum phenomenon indicating is mild osteoarthritis. Procedure Note Ronny Godfrey MD - 03/11/2016 EXAMINATION: Bilateral hand radiographs, 2 views Bilateral wrist radiographs, 2 views Bilateral foot radiographs, 2 views Bilateral ankle radiographs, 2 views Sacroiliac joint radiographs, 3 views HISTORY: Joint pain. COMPARISON: No prior study is available for comparison. FINDINGS: Hands: There is narrowing of the distal interphalangeal joint spaces and the degree of the proximal interphalangeal joint spaces secondary to osteoarthritis. Wrists: The joint spaces are maintained. There are a few small subchondral cysts in the left lunate. Feet: The joint spaces are maintained. There is a small left plantar calcaneal enthesophyte. Ankles: The joint spaces are maintained and the ankle mortises appear intact. Sacroiliac joints: There is mild sclerosis along bilateral sacroiliac joints with intra-articular vacuum phenomenon indicating is mild osteoarthritis. 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 Narrative 03/11/2016 3:53 PM CDT EXAMINATION: Bilateral hand radiographs, 2 views Bilateral wrist radiographs, 2 views Bilateral foot radiographs, 2 views Bilateral ankle radiographs, 2 views Sacroiliac joint radiographs, 3 views HISTORY: Joint pain. COMPARISON: No prior study is available for comparison. FINDINGS: Hands: There is narrowing of the distal interphalangeal joint spaces and the degree of the proximal interphalangeal joint spaces secondary to osteoarthritis. Wrists: The joint spaces are maintained. There are a few small subchondral cysts in the left lunate. Feet: The joint spaces are maintained. There is a small left plantar calcaneal enthesophyte. Ankles: The joint spaces are maintained and the ankle mortises appear intact. Sacroiliac joints: There is mild sclerosis along bilateral sacroiliac joints with intra-articular vacuum phenomenon indicating is mild osteoarthritis. Procedure Note Ronny Godfrey MD - 03/11/2016 EXAMINATION: Bilateral hand radiographs, 2 views Bilateral wrist radiographs, 2 views Bilateral foot radiographs, 2 views Bilateral ankle radiographs, 2 views Sacroiliac joint radiographs, 3 views HISTORY: Joint pain. COMPARISON: No prior study is available for comparison. FINDINGS: Hands: There is narrowing of the distal interphalangeal joint spaces and the degree of the proximal interphalangeal joint spaces secondary to osteoarthritis. Wrists: The joint spaces are maintained. There are a few small subchondral cysts in the left lunate. Feet: The joint spaces are maintained. There is a small left plantar calcaneal enthesophyte. Ankles: The joint spaces are maintained and the ankle mortises appear intact. Sacroiliac joints: There is mild sclerosis along bilateral sacroiliac joints with intra-articular vacuum phenomenon indicating is mild osteoarthritis. 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 Narrative 03/11/2016 3:53 PM CDT EXAMINATION: Bilateral hand radiographs, 2 views Bilateral wrist radiographs, 2 views Bilateral foot radiographs, 2 views Bilateral ankle radiographs, 2 views Sacroiliac joint radiographs, 3 views HISTORY: Joint pain. COMPARISON: No prior study is available for comparison. FINDINGS: Hands: There is narrowing of the distal interphalangeal joint spaces and the degree of the proximal interphalangeal joint spaces secondary to osteoarthritis. Wrists: The joint spaces are maintained. There are a few small subchondral cysts in the left lunate. Feet: The joint spaces are maintained. There is a small left plantar calcaneal enthesophyte. Ankles: The joint spaces are maintained and the ankle mortises appear intact. Sacroiliac joints: There is mild sclerosis along bilateral sacroiliac joints with intra-articular vacuum phenomenon indicating is mild osteoarthritis. Procedure Note Ronny Godfrey MD - 03/11/2016 EXAMINATION: Bilateral hand radiographs, 2 views Bilateral wrist radiographs, 2 views Bilateral foot radiographs, 2 views Bilateral ankle radiographs, 2 views Sacroiliac joint radiographs, 3 views HISTORY: Joint pain. COMPARISON: No prior study is available for comparison. FINDINGS: Hands: There is narrowing of the distal interphalangeal joint spaces and the degree of the proximal interphalangeal joint spaces secondary to osteoarthritis. Wrists: The joint spaces are maintained. There are a few small subchondral cysts in the left lunate. Feet: The joint spaces are maintained. There is a small left plantar calcaneal enthesophyte. Ankles: The joint spaces are maintained and the ankle mortises appear intact. Sacroiliac joints: There is mild sclerosis along bilateral sacroiliac joints with intra-articular vacuum phenomenon indicating is mild osteoarthritis. 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 Narrative 03/11/2016 3:53 PM CDT EXAMINATION: Bilateral hand radiographs, 2 views Bilateral wrist radiographs, 2 views Bilateral foot radiographs, 2 views Bilateral ankle radiographs, 2 views Sacroiliac joint radiographs, 3 views HISTORY: Joint pain. COMPARISON: No prior study is available for comparison. FINDINGS: Hands: There is narrowing of the distal interphalangeal joint spaces and the degree of the proximal interphalangeal joint spaces secondary to osteoarthritis. Wrists: The joint spaces are maintained. There are a few small subchondral cysts in the left lunate. Feet: The joint spaces are maintained. There is a small left plantar calcaneal enthesophyte. Ankles: The joint spaces are maintained and the ankle mortises appear intact. Sacroiliac joints: There is mild sclerosis along bilateral sacroiliac joints with intra-articular vacuum phenomenon indicating is mild osteoarthritis. Procedure Note Ronny Godfrey MD - 03/11/2016 EXAMINATION: Bilateral hand radiographs, 2 views Bilateral wrist radiographs, 2 views Bilateral foot radiographs, 2 views Bilateral ankle radiographs, 2 views Sacroiliac joint radiographs, 3 views HISTORY: Joint pain. COMPARISON: No prior study is available for comparison. FINDINGS: Hands: There is narrowing of the distal interphalangeal joint spaces and the degree of the proximal interphalangeal joint spaces secondary to osteoarthritis. Wrists: The joint spaces are maintained. There are a few small subchondral cysts in the left lunate. Feet: The joint spaces are maintained. There is a small left plantar calcaneal enthesophyte. Ankles: The joint spaces are maintained and the ankle mortises appear intact. Sacroiliac joints: There is mild sclerosis along bilateral sacroiliac joints with intra-articular vacuum phenomenon indicating is mild osteoarthritis. 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 Narrative 03/11/2016 3:53 PM CDT EXAMINATION: Bilateral hand radiographs, 2 views Bilateral wrist radiographs, 2 views Bilateral foot radiographs, 2 views Bilateral ankle radiographs, 2 views Sacroiliac joint radiographs, 3 views HISTORY: Joint pain. COMPARISON: No prior study is available for comparison. FINDINGS: Hands: There is narrowing of the distal interphalangeal joint spaces and the degree of the proximal interphalangeal joint spaces secondary to osteoarthritis. Wrists: The joint spaces are maintained. There are a few small subchondral cysts in the left lunate. Feet: The joint spaces are maintained. There is a small left plantar calcaneal enthesophyte. Ankles: The joint spaces are maintained and the ankle mortises appear intact. Sacroiliac joints: There is mild sclerosis along bilateral sacroiliac joints with intra-articular vacuum phenomenon indicating is mild osteoarthritis. Procedure Note Ronny Godfrey MD - 03/11/2016 EXAMINATION: Bilateral hand radiographs, 2 views Bilateral wrist radiographs, 2 views Bilateral foot radiographs, 2 views Bilateral ankle radiographs, 2 views Sacroiliac joint radiographs, 3 views HISTORY: Joint pain. COMPARISON: No prior study is available for comparison. FINDINGS: Hands: There is narrowing of the distal interphalangeal joint spaces and the degree of the proximal interphalangeal joint spaces secondary to osteoarthritis. Wrists: The joint spaces are maintained. There are a few small subchondral cysts in the left lunate. Feet: The joint spaces are maintained. There is a small left plantar calcaneal enthesophyte. Ankles: The joint spaces are maintained and the ankle mortises appear intact. Sacroiliac joints: There is mild sclerosis along bilateral sacroiliac joints with intra-articular vacuum phenomenon indicating is mild osteoarthritis. 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 Pattie Dasilva MD DIAGNOSTIC IMAGING O RDERABLES * XR CHEST PA AND LATERAL (03/11/2016 3:43 PM CDT) Anatomical Region Laterality Modality Chest Radiographic Radha ging 03/11/2016 3:45 PM CDT Narrative 03/11/2016 4:08 PM CDT 2 VIEW CHEST HISTORY: Rheumatoid arthritis. No prior chest x-ray is available for comparison. The heart size is normal. The aorta is atherosclerotic. The pulmonary vascularity and beoni are normal. There is a small nodule in the right upper lobe likely representing a granuloma. The lungs are otherwise clear. Degenerative change is present throughout the thoracic spine. DIAGNOSIS: Likely right upper lobe granuloma. Otherwise no acute cardiopulmonary disease. Comparison to prior chest x-rays or followup is recommended. Edited by Leslie Martel on 03/11/2016 3:59 PM Procedure Note Eugene Cooper MD - 03/11/2016 2 VIEW CHEST HISTORY: Rheumatoid arthritis. No prior chest x-ray is available for comparison. The heart size is normal. The aorta is atherosclerotic. The pulmonary vascularity and eboni are normal. There is a small nodule in the right upper lobe likely representing a granuloma. The lungs are otherwise clear. Degenerative change is present throughout the thoracic spine. DIAGNOSIS: Likely right upper lobe granuloma. Otherwise no acute cardiopulmonary disease. Comparison to prior chest x-rays or followup is recommended. Edited by Leslie Martel on 03/11/2016 3:59 PM Patt[facility]il[facility] Care Teams Chief Recordist Relationship Specialty Start Date End Date Nathaniel Hartman MD [address] [place] [id number] PCP - General Family Medicine 03/11/16
--- OUTSIDE RECORDS SUMMARY | 2024-10-31 15:44 | XMS_ITS | Clinical Summary ---
Author Organization [facility] Address [address] [place] [address] Phone Care Team Providers Care Stamper Blocker Name Role Phone Surya Suárez Jigna CRAIN Primary Care Provider [phone] Allergies No known active allergies Medications hydroCHLOROthiaz kamran 25 MG Tablet Take 25 mg by mouth daily. 8 Active losartan (COZAAR) 25 MG Tablet take 1 tablet by oral route every day 6 Active ezetimibe (ZETIA) 10 MG Tablet Take 10 mg by mouth daily. 3 9 Active albuterol 108 (90 Base) MCG/ACT Aerosol Solution take 2 Puffs by inhalation every 6 hours as needed for Wheezing or Cough. 18 g 2 Active hydroxychloroqui ne (PLAQUENIL) 200 MG Tablet Take 200 mg by mouth 2 times daily. Active omeprazole (PriLOSEC) 20 MG CAPSULE DELAYED RELEASE Take 20 mg by mouth 2 times daily. Active docusate sodium 100 MG Capsule Take 100 mg by mouth 2 times daily. 180 Capsule 2 Active HYDROcodone-acet aminophen (NORCO) 5-325 MG TabletIndication s:Abdominal pain, unspecified abdominal location Take 1-2 Tablets by mouth every 8 hours as needed for Moderate or more severe pain or Severe pain. 20 Tablet 2 Active ondansetron (ZOFRAN) 4 MG Tablet Take 1 Tablet by mouth every 8 hours as needed for Nausea - 1st line. 30 Tablet 2 Active spironolactone (ALDACTONE) 25 MG Tablet Take 1 Tablet by mouth daily. 90 Tablet 1 2 Active Blood Glucose Monitoring Suppl Device Diagnosis: Diabetes type 2 Blood testing frequency: 3 times a day 1 Each 2 Active Glucose Blood (OneTouch Verio) Strip daily 100 Each 3 2 Active OXYGEN CONCENTRATOR 4 L/min by Nasal route continuous. May use portable oxygen when concentrator is not available Active albuterol (PROVENTIL, VENTOLIN) (2.5 MG/3ML) 0.083% Nebulizer Soln 2.5 mg by Nebulization route every 4 hours as needed for Cough or Wheezing. Use 1 vial via nebulizer every 4 to 6 hours as needed for wheezing/coughin g 2 Active Lancets (OneTouch Delica Plus [id number]) Misc TEST ONCE DAILY 100 Each 3 2 Active Benzonatate (TESSALON PERLES PO) Take 100 mg by mouth 3 times daily as needed for Other (cough). [id number] Active acetaminophen (TYLENOL) 325 MG TabletIndication s:Fever,Pain Take 325-650 mg by mouth every 6 hours as needed for Fever or Mild or more severe pain. pt uses q 6-8hr prn Indications: Fever, Pain 2 Active Active Problems Problem Noted Date Diagnosed Date Hypoxemia 11/20/2021 Acute respiratory failure with hypoxia 2 Pneumonia due to COVID-19 virus 10/13/2021 COPD (chronic obstructive pulmonary disease) Hyperlipemia Hypertension Thyroid condition GERD (gastroesophageal reflux disease) SHEYLA (obstructive sleep apnea) Ulcerative colitis Systemic lupus Resolved Problems Problem Noted Date Diagnosed Date Resolved Date COVID-19 11/20/2021 Family History Medical History Relation Name Comments Parkinsonism Mother Breast Cancer Sister Relation Name Status Comments Mother Sister Social History Tobacco Use Types Packs/Day Years [...] on file Sexual Orientation Not on file Last Filed Vital Signs Vital Sign Reading Time Taken Comments Blood Pressure 122/68 02/19/2022 9:57 AM CDT Pulse 88 02/19/2022 9:57 AM CDT Temperature 36.4 ??C (97.5 ??F) 02/19/2022 9:57 AM CD T Respiratory Rate 16 02/19/2022 9:57 AM CDT Oxygen Saturation 97% 02/19/2022 9:57 AM CDT Inhaled Oxygen Concentration - - Weight 97.5 kg (215 lb) 11/21/2021 11:22 AM BLEACH MIXER Height 157.5 cm (5' 2 ) 11/26/2021 2:19 PM BLEACH MIXER Body Mass Index 38.09 11/21/2021 11:22 AM BLEACH MIXER Plan of Treatment Health Maintenance Due Date Last Done Comments DEXA Bone Density 1940 Hepatitis C Virus (HCV) Screening 1940 TdaP Immunization 1940 SARS-COV-2 Immunization (#1) 1945 Zoster Immunization (1 of 2) 1959 Respiratory Syncytial Virus (RSV) Immunization (Adult) (1 - 1-dose 75+ series) 2015 Pneumococcal Immunization (50+ years) (2 of 2 - PCV) 08/17/2018 08/17/2017 Influenza Immunization (#1) 06/05/202407/05, 07/23/2018, 06/12/2017 DTaP/Tdap/Td Immunization Discontinued 03/04/2005 Pneumococcal Immunization Combined Discontinued 08/17/2017 Hepatitis B Immunization Aged Out No longer eligible based on patient's age to complete this topic Meningococcal Immunization (ACWY) Aged Out No longer eligible based on patient's age to complete this topic Rotavirus Immunization Aged Out No lo nger eligible based on patient's age to complete this topic Insurance MEDICARE Advance Directives Documents on File Type Date Recorded Patient Trichologist Expl anation Power of Feather Mixer for Health Care 10/30/2021 1:38 PM POA-HC, 11/22/2015 * Full Code (Latest Code Status on File) Date Activated Date Inactivated Comments 11/28/2021 3:43 PM * Full Code Date Activated Date Inactivated Comments 10/12/2021 9:45 PM 11/20/2021 9:08 PM CPR-Full Nikki tment: FULL ARREST: Attempt Resuscitation/CPR wit intubation and mechanical ventilation. PRE-ARREST: Use entire range of life support measures to stabilize the patient. Care Teams Stamper Blocker Relationship Specialty Start Date End Date Surya Suárez, PAC [address] [place] [address] PCP - General Family Medicine 10/13/21
--- OUTSIDE RECORDS SUMMARY | 2024-10-31 15:44 | XMS_ITS | Clinical Summary ---
Author Organization [place] [id number] [facility] Address [address] [place] [phone] Phone Care Team Providers Care Wood Piler Name Role Phone Surya Suárez Primary Care [...] Nasal saline spray (Simply saline, Little Remedies, [place], Floral) 2 second sprays or 2 squeezes into [...] Follow up in 10 days to recheck [place] for pain as needed Tylenol as well [...] treatment. Assessment & Plan (10/18/2020 1:46 PM [employer]): TSH Thyroid Ultrasound - call with results SLE (systemic lupus erythema tosus related syndrome) (CMS/HCC) 03/16/2020 SHEYLA (obstructive sleep apnea) 03/16/2020 ESTRADA (dyspnea on [...] Morbid obesity with BMI of 45.0-49.9, adult Surgical History Surgery Date Site/Laterality Comments CHOLECYSTECTOMY THYROIDECTOMY, PARTIAL 02/02/2021 - 03/04/2021 Left Medical History Medical History Date Comments HTN (hypertension) Colitis Ulcerative colitis (HCC) Lupus Multiple thyroid nodules Sleep apnea Hypercholesterolemia GERD (gastroesophageal reflux disease) Pneumonia Urinary tract infection Family History Medical History Relation Name Comments Breast cancer Mother Parkinson's disease Mother Osteoporosis Other 1 Family history of Osteoporosis; Parkinsonism Other 2 Family history of Parkinson's disease; Breast cancer Sister 1 Breast cancer Sister 2 Relation Name Status Comments Mother Other 1 Other 2 Sister 1 Sister 2 Alive Social History Tobacco Use Types Packs/Day Years [...] on file Legal Sex Female 4:05 AM [employer] Gender Identity Female 02/26/2023 1:42 PM CDT Sexual Orientation Not on file Obstetrics History Para Term AB IAB SAB Ectopic Multiple Livin g Live Births 6 5 5 Date Outcome GA Total Labor Labor/2nd/3rd Weight Sex Type Anes PTL Lindsay A1 A5 Name Clin Term Term Term Term Term Last Filed Vital Signs Vital Sign Reading [...] 06/22/2024 2:19 PM CDT Plan of Treatment Health Maintenance Due Date Last Done Comments Hepatitis B Screening 1958 Zoster Vaccine (1 of 2) 1959 DTaP/Tdap/Td Vaccine (1 - Tdap) 03/05/2005 5 Well Visit 65+ 2005 Pneumococcal vaccine 65+ (2 of 2 - PCV) 08/17/2018 08/17/2017 Depression Screening 09/21/2020 09/21/2019, 08/06/20 19 Fall Risk Assessment 12/31/2021 12/31/2020 Influenza Vaccine (#1) 2024 9, 07/23/2018, 06/12/2017 Osteoporosis Screening-Bone Density Scan 08/05/2024 08/05/2022 Insurance MEDICARE AET[employer] MEDICARE [facility] [employer] GENERIC MEDICARE [employer] [facility] Advance Directives For more information, please contact: [phone] * Full Code (Latest Code Status on [...] 2:45 PM 11/16/2017 9:03 PM Care Teams Wood Piler Relationship Specialty Start Date End Date Surya Suárez PA [address] [place] [id number] PCP - General Physician Cut Roll Machine Operator 10/18/20
--- OUTSIDE RECORDS SUMMARY | 2024-10-31 15:44 | XMS_ITS | Encounter Summary ---
Author Organization [facility] Address [address] [place] [address]. 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
--- OUTSIDE RECORDS SUMMARY | 2024-10-31 15:44 | XMS_ITS | Clinical Summary ---
Author Organization [facility] Address [address] [place] [address]. 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 Gender Identity Not on file Sexual Orientation Not on file Plan of Treatment Health Maintenance Due Date Last Done Comments DTaP, Tdap and Td Vaccines ( 1 - Tdap) 1959 Zoster Vaccines (1 of 2) 1990 Annual Medicare Wellness Visit 2005 Pneumococcal Vaccine: 65+ Ye ars (1 of 1 - PCV) 2005 RSV Immunization or 60+ Years (1 - 1-dose 75+ series) 2015 COVID-19 Vaccine ( - 2023-2 5 season) 2024 Influenza Adult (#1) 2024 Dexa Scan (General) Completed 08/05/2022 Meningococcal B Vaccine Aged Out No l onger eligible based on patient's age to complete this topic Meningococcal Vaccine Aged Out No luzmaria bonnie eligible based on patient's age to complete this topic RSV Immunizations Under 20 Months Aged Out No longer eligible based on patient's age to complete this topic Procedures Procedure Name Priority Date/Time Associated Diagnosis Comments BONE DENSITY/DEXA Routine 08/05/2022 12: 20 PM CDT Postmenopausal from Last 3 Months or Most Recently Relevant to Health Maintenance Results * BONE DENSITY/DEXA (08/05/2022 12:20 PM CDT) Anatomical Region Laterality Modality Bone Bone Density 08/05/2022 11:2 2 AM CDT Impressions 08/05/2022 11:24 AM CDT Impression: BMD measured at right femoral neck at WHO category level of osteopenia. BMD measured at left femoral neck, both total hips and AP lumbar spine at level of normal. Ordered By: ASHLEY GHOSH Interpreted By: Richard Rae MD, 08/05/2022 11:22 AM Narrative 08/05/2022 11:24 AM CDT Examination: DEXA Bone densitometry EXAM DATE: ??08/05/2022 10:41 AM Clinical history: Postmenopausal. Parent with history of hip fracture. Vitamin D use. Dairy product consumption. Weight-bearing exercise. Technique: DEXA bone minimal density evaluation was performed in the AP projection over the lumbar spine and over both hips in the AP projection utilizing standard imaging techniques. Assessment: The BMD measured at the AP spine L1-L4 is 0.976 g/cm2 with a T-score of -0.6 and a Z-Score of ??2.1. ?? Bone density is up to 10% below young normal. This patient is considered normal according to the World Health Organization (WHO) criteria. Fracture risk is low. The BMD measured at the femur total left is 0.939 g/cm2 with a T-score of 0.0 and a Z-Score of 2.2. ?Bone density is up to 10% below young normal. This patient is considered normal according to the World Health Organization (WHO) criteria. Fracture risk is low. The BMD measured at the left femoral neck is 0.851 g/sq cm resulting in a T score of 0.0 and a Z score of 2.4, values at the WHO category level of normal. The BMD measured at the femur total right is 0.891 g/cm2 with a T-score of -0.4 and aZ-Score of ??1.8. ?? Bone density is up to 10% below young normal. This patient is considered normal according to the World Health Organization (WHO) criteria. Fracture risk is low. The BMD measured at the right femoral neck is 0.725 g/sq cm resulting in a T score of -1.1 and a Z score of 1.3, values at the WHO category level of osteopenia. FRAX results: 10 year probability of major osteoporotic fracture 17% and of hip fracture 8.8%. Recommendations: All patients should ensure an adequate intake of dietary calcium and vitamin D. The NOF recommend adults under the age of 50 need 1000 mg of calcium and 400-800 IU of vitamin D daily. Effective therapy for the prevention and treatment of osteoporosis include biphosphonates. Follow-up: People with diagnosed cases of osteoporosis or at high risk for fracture should have regular bone mineral density test. For patients eligible for Medicare, routine testing is allowed once every 2 years. Testing frequency can be increased to one year for patients who have rapidly progressing disease, those who are receiving or discontinuing medical therapy to restore bone mass, or have additional risk factors. Based on these results, a followup exam is recommended in no earlier than 2 years for routine follow-up. As early as 1 year to assess efficacy of new medication therapy for treatment of osteoporosis. Procedure Note Richard Rae MD - 08/05/2022 Examination: DEXA Bone densitometry EXAM DATE: 08/05/2022 10:41 AM Clinical history: Postmenopausal. Parent with history of hip fracture.Vitamin D use. Dairy product consumption. Weight-bearing exercise. Technique: DEXA bone minimal density evaluation was performed in the APprojection over the lumbar spine and over both hips in the AP projectionutilizing standard imaging techniques. Assessment: The BMD measured at the AP spine L1-L4 is 0.976 g/cm2 with a T-score of-0.6 and a Z-Score of 2.1. Bone density is up to 10% below youngnormal. This patient is considered normal according to the World HealthOrganization (WHO) criteria. Fracture risk is low. The BMD measured at the femur total left is 0.939 g/cm2 with a T-score of0.0 and a Z-Score of 2.2. Bone density is up to 10% below young normal.This patient is considered normal according to the World HealthOrganization (WHO) criteria. Fracture risk is low. The BMD measured at the left femoral neck is 0.851 g/sq cm resulting in aT score of 0.0 and a Z score of 2.4, values at the WHO category level ofnormal. The BMD measured at the femur total right is 0.891 g/cm2 with a T-score of-0.4 and aZ-Score of 1.8. Bone density is up to 10% below young normal.This patient is considered normal according to the World HealthOrganization (WHO) criteria. Fracture risk is low. The BMD measured at the right femoral neck is 0.725 g/sq cm resulting in aT score of -1.1 and a Z score of 1.3, values at the WHO category level ofosteopenia. FRAX results: 10 year probability of major osteoporotic fracture 17% andof hip fracture 8.8%. Recommendations: All patients should ensure an adequate intake of dietary calcium andvitamin D. The NOF recommend adults under the age of 50 need 1000 mg ofcalcium and 400-800 IU of vitamin D daily. Effective therapy for theprevention and treatment of osteoporosis include biphosphonates. Follow-up: People with diagnosed cases of osteoporosis or at high risk for fractureshould have regular bone mineral density test. For patients eligible forMedicare, routine testing is allowed once every 2 years. Testing frequencycan be increased to one year for patients who have rapidly progressingdisease, those who are receiving or discontinuing medical therapy torestore bone mass, or have additional risk factors. Based on these results, a followup exam is recommended in no earlier than2 years for routine follow-up. As early as 1 year to assess efficacy ofnew medication therapy for treatment of osteoporosis. Impression: BMD measured at right femoral neck at WHO category level of osteopenia. BMD measured at left femoral neck, both total hips and AP lumbar spine atlevel of normal. Ordered By: ASHLEY GHOSH Interpreted By: Richard Rae MD, 08/05/2022 11:22 AM us Ashley Ghosh DIDACTIC PROGRAM IN DIETETICS DIRECTOR DEXA Fin al Result from Last 3 Months or Most Recently Relevant to Health Maintenance Insurance MEDICARE [facility] MEDICARE Care Teams Manager Etl Relationship Specialty Start Date End Date Nathaniel Hartman MD [address] [place] [phone] PCP - General FAMILY PRACTICE 07/21/19
--- OUTSIDE RECORDS SUMMARY | 2024-10-31 15:44 | XMS_ITS | Encounter Summary ---
Author Organization [facility] Address [address] [place] [address] Care Team Providers Care Processing Assistant Name Role Phone Nathaniel Hartman MD Primary Care Provider [phone] Encounter Details Date Type Department Care Team (Late st Contact Info) Description 12/30/2018 Lab Requisition [facility] - Laboratory [address] [place] [address] Atif Dorado MD [address] [place] [phone] Social History Tobacco Use Types Packs/Day Years Used Date Smoking Tobacco: Never Assessed Sex and Gender Information Value Date Recorded Sex Assigned at Not on file Gender Identity Not on file Sexual Orientation Not on file documented as of this encounter Plan of Treatment Not on file documented as of this encounter Procedures Procedure Name Priority Date/Time Associated Diagnosis Comments PT-INR Routine 12/30/2018 6:15 AM CDT documented in this encounter Results * (ABNORMAL) PT-INR (12/30/2018 6:15 AM CDT) PT 19.3(H) 9.4 - 12.5 sec 12/30/2018 3:46 PM CDT [facility] INR 1.92(H) 0.82 - 1.08 12/30/2018 3:46 PM CDT [facility] Blood BLOOD SPECIMEN / Unknown Venipuncture / Unknown 12/30/2018 6:15 AM CDT 12/30/2018 3:12 PM CDT Narrative [facility] - 12/30/2018 3:46 PM CDT INR INTERPRETATION For most therapy and prophylaxis ? INR ??2.0 - 3.0 For post-myocardial infarction (MS) and mechanical heart valves ?INR ??2.5 - 3.5 Atif Dorado MD LAB - COAGULATION OR DERABLES Performing Organization Address City/State/[facility] Co de Phone Number [facility] [address] documented in this encounter Visit Diagnoses Not on filedocumented in this encounter Care Teams Processing Assistant Relationship Specialty Start Date End Date Nathaniel Hartman MD [address] [place] [phone] PCP - General Family Medicine 03/11/16 documented as of this encounter
--- OUTSIDE RECORDS SUMMARY | 2024-10-31 15:44 | XMS_ITS | Encounter Summary ---
Author Organization [facility] Address [address] [place] [address] Care Team Providers Care It Trainee Name Role Phone Surya Suárez Primary Care Provider Encounter Details Date Type Department Care Team ([facility] st Contact Info) Description 12/24/2020 Telephone [facility] [address] [place] [address] Nasreen Downey, ABILIO Social History Tobacco Use Types Packs/Day Years Used Date Smoking Tobacco: Never Smokeless Tobacco: Never Comments:Second hand tobacco exposure Alcohol Use Standard Drinks/Week Comments Never 0 (1 standard drink = 0.6 oz pur e alcohol) AUDIT-C Answer Date Recorded Frequency of Alcohol Consumption Never 07/24/2019 Average Number of Drinks Not on file 019 Frequency of Binge Drinking Not on file 07/06 PHQ-2 Answer Date Recorded PHQ-2 Score 0 08/06/2019 Comments No Sex and Gender Information Value Date Recorded Sex Assigned at Not on file 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
== END 2024-10-31 14:48 | disposition home or self-care (01) ==
LOC: CHSIMG 14:52
PROVIDERS: PCP Physician Assistant; Visit Provider Physician Assistant
DX: J18.9 Pneumonia, unspecified organism (principal)
CPT/HCPCS: 71046

== ENCOUNTER 2025-04-25 14:35 | Observation (INO) | payer MEDICARE, SELFPAY ==
[2025-04-25] VITALS (9 sets, daily range): BP systolic 115–141; BP diastolic 62–87; PULSE 92–104; RESP 20–95; TEMP 36.3–36.7; O2SAT 95–100; BMI 39.6
--- NOTE | ~2025-04-25 | XR_ITS ---
EXAM/PROCEDURE: XR chest 1V portable - 04/25/2025 14:58 CDT HISTORY: 84 years old Female with coarse productive cough, sob, dx pneumonia 04/21 TECHNIQUE: Two view(s) of the chest. COMPARISON: None available. FINDINGS: LUNGS/ PLEURA: Bibasilar airspace disease, right greater than left. No pleural effusions or pneumotho rax. HEART/ MEDIASTINUM: Heart appears normal in size. Atherosclerotic calcifications are seen. BONES: Degenerative changes. OTHER: Visualized upper abdomen is unremarkable. IMPRESSION: Bibasilar airspace disease, right greater than left. Findings can represent pneumonia in appropriate clinical settings. Short-term follow-up chest radiograph is recommended after appropriate clinical th erapy. Reviewed, dictated and finalized at location A. IMPRESSION: Bibasilar airspace disease, right greater than left. Findings can represent pne umonia in appropriate clinical settings. Short-term follow-up chest radiograph is recommended after appropriate clinical therapy.
--- OUTSIDE RECORDS SUMMARY | 2025-04-25 14:46 | XMS_ITS | Encounter Summary ---
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
--- OUTSIDE RECORDS SUMMARY | 2025-04-25 14:46 | XMS_ITS | Clinical Summary ---
Author Organization [facility] Address [address] [place] [address] Care Team Providers Care Printing Gray Cloth Tender Name Role Phone Nathaniel Hartman MD Primary Care Provider [phone] Source Comments [facility],non-owned Affiliates and Associated Physician Practices is amultiple site organization consisting of ambulatory clinics and hospital sitesin [place], [place], [place] and [place]. This disclosure is being madepursuant to the Care Everywhere program and may not contain all information available regarding this patient. Last updated 18.[facility] [employer] Social History Tobacco Use Types Packs/Day Years Used Date Smoking Tobacco: Never Assessed Comments Unknown Sex and Gender Information Value Date Recorded Sex Assigned at Not on file Legal Sex Female 2:59 PM CDT Gender Identity Not on file Sexual Orientation Not on file Plan of Treatment Health Maintenance Due Date Last Done Comments BONE DENSITY TESTING 1940 DTAP/TDAP/TD VACCINES (1 - Tdap) 1959 PNEUMOCOCCAL VACCINE 50+ (1 of 1 - PCV) 1990 ZOSTER VACCINE (1 of 2) 1990 Respiratory Syncytial Virus (RSV) Vaccine Pt: or over 60 yrs (1 - 1-dose 75+ series) 2015 COVID-19 VACCINE ( - 2023-2 5 season) 2024 DEPRESSION SCREENING 10/05/2024 INFLUENZA VACCINE (#1) 2025 HEPATITIS B VACCINE Aged Out No longe r eligible based on patient's age to complete this topic HIB VACCINE Aged Out No longer eligi ble based on patient's age to complete this topic HPV VACCINE Aged Out No longer eligi ble based on patient's age to complete this topic MENINGOCOCCAL (Group B) VACC INE SHARED DECISION-MAKING Aged Out No longer eligibl e based on patient's age to complete this topic MENINGOCOCCAL GROUPS A/C/Y/W VACCINE Aged Out No longer eligible b ased on patient's age to complete this topic Insurance MEDICARE [facility] MEDICARE [facility] Care Teams Printing Gray Cloth Tender Relationship Specialty Start Date End Date Nathaniel Hartman MD [address] [place] [phone] PCP - General Family Medicine 03/11/16
--- OUTSIDE RECORDS SUMMARY | 2025-04-25 14:46 | XMS_ITS | Encounter Summary ---
Author Organization [facility] Address [address] [facility] [place] [address] Phone Care Team Providers Care Waste Collection Driver Name Role Phone Surya Suárez Jigna [facility] Primary Care Provider [phone] Reason for Visit * Reason Comments Medication Refill Encounter Details Date Type Department Care Team (Late st Contact Info) Description 01/10/2022 Refill [facility] - Endocrinology - [place] [address] [place] [phone] Rosalee Rodríguez MD [address] [phone] Medication Refill Social History Tobacco Use Types [...] on filedocumented in this encounter Care Teams Waste Collection Driver Relationship Specialty Start Date End Date Surya Suárez, [facility] [address] [place] [phone] PCP - General Family Medicine 10/13/21 documented as of this encounter
--- OUTSIDE RECORDS SUMMARY | 2025-04-25 14:46 | XMS_ITS | Encounter Summary ---
Author Organization [facility] Address [address] [facility] [place] [address] Care Team Providers Care Temperature Regulator Name Role Phone Nathaniel Hartman MD Primary Care Provider [phone] Encounter Details Date Type Department Care Team (Late st Contact Info) Description 12/30/2018 Lab Requisition [facility] - Laboratory [address] [place] [address] Atif Dorado MD [address] [place] [phone] Social History Tobacco Use Types Packs/Day Years [...] - 12.5 sec 12/30/2018 3:46 PM CDT [facility] INR 1.92(H) 0.82 - 1.08 12/30/2018 3:46 PM CDT [facility] Blood BLOOD SPECIMEN / Unknown Venipuncture / Unknown 12/30/2018 6:15 AM CDT 12/30/2018 3:12 PM CDT Narrative [facility] - 12/30/2018 3:46 PM CDT INR INTERPRETATION For most therapy and prophylaxis INR 2.0 - 3.0 For post-myocardial infarction ([place]) and mechanical heart valves INR 2.5 - 3.5 us Atif Dorado MD LAB - COAGULATION ORDERABLES nal Result [facility] [address] documented in this encounter Visit Diagnoses Not on filedocumented in this encounter Care Teams Temperature Regulator Relationship Specialty Start Date End Date Nathaniel Hartman MD [address] [place] [phone] PCP - General Family Medicine 03/11/16 documented as of this encounter
--- NOTE | 2025-04-25 14:47 | ECG_ITS ---
Test Date: 2025-04-25 15:17:02 Measurements Intervals [place] Rate: 94 P: 61 WA: 184 QRS: 71 QRSD: 110 T: 5 QT: 303 QTc: 380 Interpretive Statements SINUS RHYTHM NONSPECIFIC T-WAVE ABNORMALITY Compared to ECG 10/14/2024 16:48:31 Sinus arrhythmia no longer present Electronically Signed On 04-25-2025 15:58:39 CDT by Lemuel Maldonado M.D.
--- OUTSIDE RECORDS SUMMARY | 2025-04-25 14:47 | XMS_ITS | Clinical Summary ---
Author Organization [facility] [address] Address [address] [place] [address] Phone Care Team Providers Care Art Class Model Name Role Phone Surya Suárez Primary Care [...] total) by mouth nightly 90 tablet 3 1 Active Additional Information Patient not taking.Reported on [...] Nasal saline spray (Simply saline, Little Remedies, [place], [place]) 2 second sprays or 2 squeezes into [...] Follow up in 10 days to recheck [place] for pain as needed Tylenol as well [...] treatment. 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 17 Assessment & Plan (03/30/2018 4:28 PM CDT): [...] Morbid obesity with BMI of 45.0-49.9, adult Encounters Date Type Department Care Team Description 03/27/2025 Telephone [facility] Allergy and Immunology [address] [place] [address] Marek Nielsen MD 02/17/2025 Results Follow-Up [facility] Pulmonary at [address] [place] [address] Igor Avalos, DO Immunoglobulin IgG subclasses 02/16/2025 2:00 PM CDT Lab [address] [address] Low serum IgG for age 0502/16/2025 12:45 PM CDT - 02/16/2025 11:59 PM CDT Hospital Encounter [facility] Respiratory [address] [place] [address] Chronic obstructive pulmonary disease, unspecified COPD type (HCC) Discharge Disposition: Discharge to home or self care 01/26/2025 Results Follow-Up [facility] Pulmonary at [address] [place] [address] Igor Avalos, IgE, IgM, IgG, Additional followed-up results: 3 from Last 3 Months Surgical History Surgery Date Site/Laterality Comments CHOLECYSTECTOMY [...] on file Legal Sex Female 4:05 AM 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 BOAT AND BARGE 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 Gender Identity Female 02/26/2023 1:42 PM CDT Sexual Orientation Not on file Obstetrics History Para Term AB IAB SAB Ectopic Multiple Livin g Live Births 6 5 5 Date Outcome GA Total Labor Labor/2nd/3rd Weight Sex Type Anes PTL Lindsay A1 A5 Name Clin Term Term Term Term Term Last Filed Vital Signs Vital Sign Reading Time Taken Comments Blood Pressure 102/49 01/18/2025 11:05 AM CDT Pulse 67 01/18/2025 11:05 AM CDT Temperature 36.5 C (97.7 F) 01/18/2025 11:05 AM CDT Respiratory Rate 18 01/18/2025 11:05 AM CDT Oxygen Saturation 97% 01/18/2025 11:05 AM CDT Inhaled Oxygen Concentration - - Weight 97.8 kg (215 lb 9.6 oz) 01/18/2025 11:05 AM CDT Height 160 cm (5' 3) 01/18/2025 11:05 AM CDT Body Mass Index 38.19 01/18/2025 11:05 AM CDT Plan of Treatment Health Maintenance Due Date Last Done Comments Hepatitis B Screening 1958 Zoster Vaccine (1 of 2) 1959 DTaP/Tdap/Td Vaccine (1 - Tdap) 03/05/2005 05 5 Well Visit 65+ 2005 Pneumococcal vaccine 65+ (2 of 2 - PCV) 08/17/2018 08/17/2017 Depression Screening 09/21/2020 09/21/2019, 08/06/20 19 Fall Risk Assessment 12/31/2021 12/31/2020 Influenza Vaccine (#1) 2025 9, 07/23/2018, 06/12/2017 Osteoporosis Screening-Bone Density Scan 12/28/2026 12/28/2024, 08/05/2022 Procedures Procedure Name Priority Date/Time Associated Diagnosis Comments IMMUNOGLOBULIN IGG SUBCLASSES Routine 02/16/2025 1:38 PM CDT Low serum IgG for age DEXA AXIAL SKELETON BONE DENSITY 1 OR MORE SITES Schedule Routine, Read Routine (OP Routine) 12/28/2024 2:40 PM CDT Post-menopausal from Last 3 Months or Most Recently Relevant to Health Maintenance Results * (ABNORMAL) Immunoglobulin IgG subclasses (02/16/2025 1:38 PM CDT) IgG 456(L) 767 - 1590 mg/dL [place] ref Lab IgG, fraction 1 279(L) 341 - 894 mg/dL [facility] ([facility]) IgG, fraction 2 136(L) 171 - 632 mg/dL [facility] ([facility]) IgG, fraction 3 105.3 18.4 - 106.0 mg/dL [facility] ([facility]) IgG, fraction 4 3.6 2.4 - 121.0 mg/dL [facility] ([facility]) Comment: Test Performed by: [facility] [place] [address] Manager Linux: Odell Valentin Ph.D.; CLIA# [id number] Blood 02/16/2025 1:3 8 PM CDT 02/16/2025 1:55 PM CDT Igor Avalos DO LAB BLOOD ORDERABLES Cristina jenni Result [facility] (AYAAN) 1 [facility] Department [place] [address] [place] ref Lab * Dexa Axial Skeleton Bone Density 1 or 2 Site (12/28/2024 2:40 PM CDT) Anatomical Region Laterality Modality Body N/A Other 12/31/2024 12:0 5 PM CDT Narrative 12/31/2024 12:06 PM CDT EXAM DESCRIPTION: DEXA AXIAL SKELETON BONE DENSITY 1 OR MORE SITES REASON FOR STUDY: 84 y/o year old F with given history of: Post menopausal Screening Psychometric Examiner/Model: [employer] Discovery SL (S/N [id number]) Facility LSC value of 0.022 for the AP spine, 0.027 for the femur, and 0.023 for the forearm. CLINICAL INFORMATION: Current height: 63 inches Maximum height: 64 inches Weight: 221 pounds Risk factors: Postmenopausal, adult fracture, parental hip fracture, steroid use COMPARISON: None available FINDINGS: AP LUMBAR SPINE L1-L4: Total BMD is 1.007 g/cm2 T-score is -0.4 LEFT HIP: Total BMD is 0.899 g/cm2 T-score is -0.4 Femoral neck BMD is 0.762 g/cm2 T-score is -0.8 FRAX: FRAX not reported due to T-scores of hip, femoral neck and/or spine being at or above -1.0 (Normal). IMPRESSION: Normal bone mass. REFERENCE: Bone mineral density: T-Score: Normal (T-score above or = -1.0) Low bone mass (T-score between -1.0 and -2.5) replaces the previously used term osteopenia Osteoporosis (T-score = or below -2.5) Z-Score: Within the expected range for age (Z-score above -2.0) Below the expected range for age (Z-score is -2.0 or below) Please see below follow up recommendations. Medical evaluation for secondary causes of low bone mineral density may be appropriate. FRAX is a World Health Organization validated fracture risk assessment tool that calculates a person's 10 year probability of a major osteoporosis related fracture and hip fracture. According to the National Osteoporosis Foundation guidelines, postmenopausal women and men age 50 or older with low bone mass and a 10 year probability of a major osteoporosis related fracture = or greater than 20% or a 10 year probability of a hip fracture = or greater than 3% should be considered for pharmacological treatment for the prevention of osteoporosis. For further information, including treatment recommendations, please refer to the 2019 ISCD Official Positions (http://www.iscd.org) and the NOF's Clinician's Guide to Prevention and Treatment of Osteoporosis (http://www.nof.org/professionals/clinical-guidelines) THIS IS AN ELECTRONICALLY VERIFIED FINAL REPORT 12/31/2024 12:06 PM - Electronically signed by Keith Padilla M.D. MF: BRIANNA Report ID: [id number] Reading Location: [id number] Procedure Note Keith Padilla MD - 12/31/2024 EXAM DESCRIPTION: DEXA AXIAL SKELETON BONE DENSITY 1 OR MORE SITES REASON FOR STUDY: 84 y/o year old F with given history of: Post menopausal Screening Psychometric Examiner/Model: [employer] SL (S/N [id number]) Facility LSC value of 0.022 for the AP spine, 0.027 for the femur, and0.023 for the forearm. CLINICAL INFORMATION: Current height: 63 inches Maximum height: 64 inches Weight: 221 pounds Risk factors: Postmenopausal, adult fracture, parental hip fracture,steroid use COMPARISON: None available FINDINGS: AP LUMBAR SPINE L1-L4: Total BMD is 1.007 g/cm2 T-score is -0.4 LEFT HIP: Total BMD is 0.899 g/cm2 T-score is -0.4 Femoral neck BMD is 0.762 g/cm2 T-score is -0.8 FRAX: FRAX not reported due to T-scores of hip, femoral neck and/or spine beingat or above -1.0 (Normal). IMPRESSION: Normal bone mass. REFERENCE: Bone mineral density: T-Score: Normal (T-score above or = -1.0) Low bone mass (T-score between -1.0 and -2.5) replaces thepreviously used term osteopenia Osteoporosis (T-score = or below -2.5) Z-Score: Within the expected range for age (Z-score above -2.0) Below the expected range for age (Z-score is -2.0 or below) Please see below follow up recommendations. Medical evaluation forsecondary causes of low bone mineral density may be appropriate. FRAX is a World Health Organization validated fracture risk assessmenttool that calculates a person's 10 year probability of a major osteoporosisrelated fracture and hip fracture. According to the National OsteoporosisFoundation guidelines, postmenopausal women and men age 50 or older with low bonemass and a 10 year probability of a major osteoporosis related fracture = or greater than 20% or a 10 year probability of a hip fracture = or greaterthan 3% should be considered for pharmacological treatment for the preventionof osteoporosis. For further information, including treatment recommendations, please referto the 2019 ISCD Official Positions (http://www.iscd.org) and the NOF's Clinician's Guide to Prevention and Treatment of Osteoporosis (http://www.nof.org/professionals/clinical-guidelines) THIS IS AN ELECTRONICALLY VERIFIED FINAL REPORT 12/31/2024 12:06 PM - Electronically signed by Keith Padilla M.D. MF: BRIANNA Report ID: [id number] Reading Location: [place] [address] Surya OLVERA IMG DXA PROCEDURES Cristina l Result from Last 3 Months or Most Recently Relevant to Health Maintenance Insurance MEDICARE [employer] MEDICARE [place] [facility] MEDICARE [facility] [place] [address] Advance Directives For more information, please contact: [phone] * Full Code (Latest Code Status on [...] 2:45 PM 11/16/2017 9:03 PM Care Teams Art Class Model Relationship Specialty Start Date End Date Surya Suárez PA [address] [place] [address] PCP - General Physician Executive Legal Secretary 10/18/20
--- OUTSIDE RECORDS SUMMARY | 2025-04-25 14:47 | XMS_ITS | Clinical Summary ---
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 Bone density is up to 10% below young normal. This patient is considered normal according to the World Health Organization (WHO) criteria. Fracture risk is low. The BMD measured at the femur total left is 0.939 g/cm2 with a T-score of 0.0 and a Z-Score of 2.2. Bone density [...] a T-score of -0.4 and aZ-Score of 1.8. Bone density is [...] By: Richard Rae MD, 08/05/2022 11:22 AM Ashley Ghosh CLINICAL RESEARCH NURSE COORDINATOR DEXA Fin al Result from Last 3 Months or Most Recently Relevant to Health Maintenance Insurance MEDICARE [facility] MEDICARE Care Teams Marketing Automation Analyst Relationship Specialty Start Date End Date Nathaniel Hartman MD [address] [place] [phone] PCP - General FAMILY PRACTICE 07/21/19
--- OUTSIDE RECORDS SUMMARY | 2025-04-25 14:47 | XMS_ITS | Referral Summary ---
Author Organization [facility] [address] Address [address] [place] [address] Phone Care Team Providers Care Boat Canvas Maker And Installer Name Role Phone Surya Suárez Primary Care Provider Encounters Date Type Department Care Team Description 03/27/2025 Telephone [facility] Allergy and Immunology [address] [place] [address] Marek Nielsen MD 02/17/2025 Results Follow-Up [facility] Pulmonary at [address] [place] [address] Igor Avalos DO Immunoglobulin IgG subclasses 02/16/2025 2:00 PM CDT Lab [address] [address] Low serum IgG for age 0502/16/2025 12:45 PM CDT - 02/16/2025 11:59 PM CDT Hospital Encounter [facility] Respiratory [address] [place] [address] Chronic obstructive pulmonary disease, unspecified COPD type (HCC) Discharge Disposition: Discharge to home or self care 01/26/2025 Results Follow-Up [facility] Pulmonary at [address] [place] [address] Igor Avalos DO IgE, IgM, IgG, Additional followed-up results: 3 from Last 3 Months Allergies Active Allergy Reactions Criticality Noted Date [...] Nasal saline spray (Simply saline, Little Remedies, [place], [place]) 2 second sprays or 2 squeezes into [...] Follow up in 10 days to recheck [place] for pain as needed Tylenol as well [...] treatment. 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): TSH Thyroid Ultrasound - call with results [...] on file Legal Sex Female 4:05 AM MIXING MACHINE OPERATOR Gender Identity Female 02/26/2023 1:42 PM [...] 01/18/2025 11:05 AM CDT Plan of Treatment Not on file Procedures Procedure Name Priority Date/Time Associated Diagnosis [...] CDT) IgG 456(L) 767 - 1590 mg/dL [place] ref Lab IgG, fraction 1 279(L) 341 - 894 mg/dL [facility] ([facility]) IgG, fraction 2 136(L) 171 - 632 mg/dL [facility] ([facility]) IgG, fraction 3 105.3 18.4 - 106.0 mg/dL [facility] ([facility]) IgG, fraction 4 3.6 2.4 - 121.0 mg/dL [facility] ([facility]) Comment: Test Performed by: [facility] [address] [place] [address] [employer]fuels Plant Manager: Odell Valentin Ph.D.; CLIA# [id number] Blood 02/16/2025 1:38 PM CDT 02/16/2025 1:55 PM CDT Igor Avalos DO LAB BLOOD ORDERABLES Cristina l Result [facility] ([facility]) 1 [facility] Department [place] [address] [place] ref Lab * Dexa Axial Skeleton Bone Density 1 or 2 Site (12/28/2024 2:40 PM CDT) Anatomical Region Laterality Modality Body N/A Other 12/31/2024 12:0 5 PM CDT Narrative 12/31/2024 12:06 PM CDT EXAM DESCRIPTION: DEXA AXIAL SKELETON BONE DENSITY 1 OR MORE SITES REASON FOR STUDY: 84 y/o year old F with given history of: Post menopausal Screening Living Coach/Model: iApp4Me SL (S/N 05401) Facility LSC value of 0.022 for the [...] Keith Padilla M.D. MF: BRIANNA Report ID: [id number] Reading Location: [place] [address] Procedure Note Keith Padilla MD - 12/31/2024 EXAM DESCRIPTION: DEXA AXIAL SKELETON BONE DENSITY 1 OR MORE SITES REASON FOR STUDY: 84 y/o year old F with given history of: Post menopausal Screening Living Coach/Model: iApp4Me SL (S/N 95539) Facility LSC value of 0.022 for the [...] Keith Padilla M.D. MF: BRIANNA Report ID: [id number] Reading Location: [place] [address] Surya OLVERA IM DXA PROCEDURES Cristina l Result from Last 3 Months or Most Recently Relevant to Health Maintenance Insurance MEDICARE [facility] Address: [address] [address] A[employer]NA [place] MEDICARE [facility] MEDICARE [facility] Advance Directives For more information, please contact: [phone] * Full Code (Latest Code Status on [...] 2:45 PM 11/16/2017 9:03 PM Care Teams Boat Canvas Maker And Installer Relationship Specialty Start Date End Date Surya Suárez PA [address] [place] [address] PCP - General Physician Radio Antenna Installer 10/18/20
--- OUTSIDE RECORDS SUMMARY | 2025-04-25 14:47 | XMS_ITS | Patient Health Record ---
Author Organization 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) 8 Active confirmed Problem Callosity (392134444) Corns and callosities (L84) 8 Active confirmed Problem Acquired hammer toe of right foot (63668450952462 05) Other hammer toe(s) (acquired), right foot (M20.41) 7 Active confirmed Problem Acquired hammer toe of left foot (18419337808030 03) Other hammer toe(s) (acquired), left foot (M20.42) 7 Active confirmed Problem Family history of ischemic heart disease (046958891) Family history of ischemic heart disease and other diseases of the circulatory system (Z82.49) 7 Active confirmed Problem Family history of diabetes mellitus (908181877) Family history of diabetes mellitus (Z83.3) 7 Active confirmed Plan Of Treatment No Information Insurance Providers Payer Name Payer Address Payer Phone Subscriber Number Group Number Insured Name Patient Relationship to Insured Coverage Start Date Coverage End Date [place] [address] [place], [place] [id number] ANA RENTERIA Self - patient is the insured 5 A[employer]NA [address] [place] [address] [id number] ANA RENTERIA Self - patient is the insured
--- OUTSIDE RECORDS SUMMARY | 2025-04-25 14:47 | XMS_ITS | Clinical Summary ---
Author Organization [facility] Address [address] [place] [address] Phone Care Team Providers Care Admission Specialist Name Role Phone Surya Suárez Jigna CRAIN Primary Care Provider [phone] Allergies No known active allergies Medications hydroCHLOROthiaz [...] g 2 Active Lancets (OneTouch Delica Plus [id number]) Misc TEST ONCE DAILY 100 Each 3 2 Active Benzonatate (TESSALON PERLES PO) Take 100 mg by mouth 3 times daily as needed for Other (cough). [id number] Active acetaminophen (TYLENOL) 325 MG TabletIndication s:Fever,Pain [...] 88 02/19/2022 9:57 AM CDT Temperature 36.4 C (97.5 F) 02/19/2022 9:57 AM CDT Respiratory Rate 16 02/19/2022 9:57 AM CDT Oxygen Saturation 97% 02/19/2022 9:57 AM CDT Inhaled Oxygen Concentration - - Weight 97.5 kg (215 lb) 11/21/2021 11:22 AM DIRECTOR HUMAN SERVICES Height 157.5 cm (5' 2) 11/26/2021 2:19 PM DIRECTOR HUMAN SERVICES Body Mass Index 38.09 11/21/2021 11:22 AM DIRECTOR HUMAN SERVICES Plan of Treatment Health Maintenance Due Date Last Done Comments Hepatitis C Virus (HCV) Screening 1940 TdaP Immunization 1940 SARS-COV-2 Immunization (#1) 1945 Zoster Immunization (1 of 2) 1959 Respiratory Syncytial Virus (RSV) Immunization (Adult) (1 - 1-dose 75+ series) 2015 Pneumococcal Immunization (5 0+ years) (2 of 2 - PCV) 08/17/2018 08/17/2017 Influenza Immunization (#1) 06/05/202507/05, 07/23/2018, 06/12/2017 DEXA Bone Density 12/28/2026 12/28/2024, 08/05/2022 DTaP/Tdap/Td Immunization Discontinued 03/04/2005 Pneumococcal Immunization Combined Discontinued 08/17/2017 Hepatitis B Immunization Aged Out No longer eligible based on patient's age to complete this topic Human Papillomavirus (HPV) Immunization Aged Out No longer eligible based on patient's age to complete this topic Meningococcal Immunization (ACWY) Aged Out No longer eligible based on patient's age to complete this topic Rotavirus Immunization Aged Out No lo nger eligible based on patient's age to complete this topic Insurance MEDICARE [facility] on file Advance Directives Documents on File Type Date Recorded Patient Fruit Or Nut Farmworker Expl anation Power of Freight Representative for Health Care 10/30/2021 1:38 PM POA-HC, [...] measures to stabilize the patient. Care Teams Admission Specialist Relationship Specialty Start Date End Date Surya Suárez, PAC [address] [place] [address] PCP - General Family Medicine 10/13/21
--- OUTSIDE RECORDS SUMMARY | 2025-04-25 14:47 | XMS_ITS | Encounter Summary ---
Author Organization [facility] Address [facility] [place] [address] Care Team Providers Care Electrician Control Equipment Name Role Phone Nathaniel Hartman MD Primary Care Provider [phone] Encounter Details Date Type Department Care Team (Late st Contact Info) Description 03/12/2019 Abstract [facility] CONVERSION [address] [place] [address] , Generic Conversion, Social History Tobacco Use Types Packs/Day Years Used Date Smoking Tobacco: Never Assessed Comments Unknown Sex and Gender Information Value Date Recorded Sex Assigned at Not on file Legal Sex Female 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
[2025-04-25] MEDS: IPRATROPIUM 0.5 MG/ALBUTEROL SULFATE 2.5 MG AMPUL.NEB 3 ML INHALATION (15:05)
[2025-04-25 15:12] LABS: Hematocrit 37.7 % (35.0-42.0); Hemoglobin 12.4 g/dL (11.7-13.8); Immature Granulocyte Percent A 1.4 % (0.0-0.0); Lymphocytes Absolute Auto 2.63 K/mm3 (1.10-4.50); Mean Corpuscular HGB Conc 32.9 g/dL (32-36); Mean Corpuscular Hemoglobin 29.6 pg (27.0-31.0); Mean Corpuscular Volume 90.0 fL (78.0-102.0); Nucleated Red Blood Cells Absolute Auto 0.00 K/mm3 (0.00-0.00); Nucleated Red Blood Cells Perc 0.0 % (0-0.0); Platelet Count Result 292 K/mm3 (150-420); Red Blood Count 4.19 M/mm3 (4.20-5.40); White Blood Count 7.7 K/mm3 (4.8-10.8)
[2025-04-25 15:32] LABS: Alanine Aminotransferase 26 U/L (6-35); Albumin Level 4.2 g/dL (3.5-5.1); Alkaline Phosphatase 75 U/L (38-126); Anion Gap 11 mmol/L (4-12); Aspartate Amino Transferase 31 U/L (14-36); Bilirubin,Total 0.7 mg/dL (0.2-1.3); Blood Urea Nitrogen 22 mg/dL (7-17); Calcium 9.1 mg/dL (8.4-10.2); Carbon Dioxide 23 mmol/L (22-30); Chloride 105 mmol/L (98-107); Estimated CRCL calculation 48 ml/min; Estimated Glomerular Filt Rate > 60; Glucose 109 mg/dL (65-110); Osmolality Calculated 292 mOsm/kg (285-295); Potassium 3.4 mmol/L (3.4-5.0); Sodium 139 mmol/L (137-145); Total Protein 7.1 g/dL (6.3-8.2)
--- OUTSIDE RECORDS SUMMARY | 2025-04-25 15:36 | XMS_ITS | Encounter Summary ---
Author Organization [facility] Healthcare Address [address] [place] [address] Care Team Providers Care Archives Specialist Name Role Phone Surya Suárez Primary Care Provider Encounter Details Date Type Department Care Team ([facility] st Contact Info) Description 12/24/2020 Telephone [facility] [address] [place] [address] Nasreen Downey, ABILIO Social History Tobacco Use [...] on file Legal Sex Female 4:05 AM CLINICAL EDUCATION ASSISTANT Gender Identity Female 02/26/2023 1:42 PM CDT Sexual Orientation Not on file documented as of this encounter Plan of Treatment Not on file documented as of this encounter Visit Diagnoses Not on filedocumented in this encounter Care Teams Archives Specialist Relationship Specialty Start Date End Date Surya Suárez PA [address] [place] [address] PCP - General Physician Foundation Maker 10/18/20 documented as of this encounter
--- OUTSIDE RECORDS SUMMARY | 2025-04-25 15:36 | XMS_ITS | Clinical Summary ---
Author Organization [facility] Address [address] [place] [address] Care Team Providers Care Apron Operator Name Role Phone Nathaniel Hartman MD Primary Care Provider [phone] Source Comments [facility],non-owned Affiliates and Associated Physician Practices is amultiple site organization consisting of ambulatory clinics and hospital sitesin [place], [place], [place] and [place]. This disclosure is being madepursuant to the Care Everywhere program and may not contain all information available regarding this patient. Last updated 18.[facility] [employer] Social History Tobacco Use Types Packs/Day Years [...] age to complete this topic Insurance MEDICARE [facility] MEDICARE [facility] Care Teams Apron Operator Relationship Specialty Start Date End Date Nathaniel Hartman MD [address] [place] [phone] PCP - General Family Medicine 03/11/16
--- OUTSIDE RECORDS SUMMARY | 2025-04-25 15:36 | XMS_ITS | Referral Summary ---
Author Organization [facility] [address] Address [address] [place] [address] Phone Care Team Providers Care Retirement Actuary Name Role Phone Surya Suárez Primary Care Provider Encounters Date Type Department Care Team Description 03/27/2025 Telephone [facility] [address] [facility] [address] [place] [address] Marek Nielsen MD 02/17/2025 Results Follow-Up [facility] Pulmonary at [address] [place] [address] Igor Avalos DO Immunoglobulin IgG subclasses 02/16/2025 2:00 PM CDT Lab [address] [address] Low serum IgG for age 0502/16/2025 12:45 PM CDT - 02/16/2025 11:59 PM CDT Hospital Encounter [facility] Respiratory [address] [place] [address] Chronic obstructive pulmonary disease, unspecified COPD type (HCC) Discharge Disposition: Discharge to home or self care 01/26/2025 Results Follow-Up [facility] Pulmonary at [address] [place] [address] Igor Avalos DO IgE, IgM, IgG, Additional [...] Nasal saline spray (Simply saline, Little Remedies, [place], [place]) 2 second sprays or 2 squeezes into [...] Follow up in 10 days to recheck [place] for pain as needed Tylenol as well [...] treatment. Assessment & Plan (10/18/2020 1:46 PM LAV CREWMAN): TSH Thyroid Ultrasound - call with results [...] on file Legal Sex Female 4:05 AM LAV CREWMAN Gender Identity Female 02/26/2023 1:42 PM CDT [...] CDT) IgG 456(L) 767 - 1590 mg/dL [facility] ref Lab IgG, fraction 1 279(L) 341 - 894 mg/dL [facility] (AYAAN) IgG, fraction 2 136(L) 171 - 632 mg/dL [facility] ([facility]) IgG, fraction 3 105.3 18.4 - 106.0 mg/dL [facility] (AY[facility]) IgG, fraction 4 3.6 2.4 - 121.0 mg/dL [facility] (AYAAN) Comment: Test Performed by: [facility] [address] [place] [address] Turkey Egg Gatherer: Odell Valentin Ph.D.; CLIA# [id number] Blood 02/16/2025 1:38 PM CDT 02/16/2025 1:55 PM CDT Igor Avalos DO LAB BLOOD ORDERABLES Cristina l Result [facility] (AYAAN) 1 [facility] Department [place] [address] [facility] ref Lab * Dexa Axial Skeleton Bone Density 1 or 2 Site (12/28/2024 2:40 PM CDT) Anatomical Region Laterality Modality Body N/A Other 12/31/2024 12:0 5 PM CDT Narrative 12/31/2024 12:06 PM CDT EXAM DESCRIPTION: DEXA AXIAL SKELETON BONE DENSITY 1 OR MORE SITES REASON FOR STUDY: 84 y/o year old F with given history of: Post 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 MF: BRIANNA Report ID: [id number] Reading Location: [place] [address] Surya OLVERA IM DXA PROCEDURES Cristina l Result from Last 3 Months or Most Recently Relevant to Health Maintenance Insurance MEDICARE AETNA [place] MEDICARE [facility] MEDICARE [facility] Advance Directives For more information, please contact: [phone] * Full Code (Latest Code Status on [...] 2:45 PM 11/16/2017 9:03 PM Care Teams Retirement Actuary Relationship Specialty Start Date End Date Surya Suárez PA [address] [place] [id number] PCP - General Physician Resource Forester 10/18/20
--- OUTSIDE RECORDS SUMMARY | 2025-04-25 15:36 | XMS_ITS | Encounter Summary ---
Author Organization [facility] Address [address] [facility] [place] [address] Care Team Providers Care Sewage Plant Operator Name Role Phone Nathaniel Hartman MD Primary Care Provider [phone] Encounter Details Date Type Department Care Team (Late st Contact Info) Description 12/30/2018 Lab Requisition [facility] - Laboratory [address] [place] [address] Atif Dorado MD [address] [place] [address] Social History Tobacco Use Types Packs/Day Years [...] 0.82 - 1.08 12/30/2018 3:46 PM CDT [facility] Blood BLOOD SPECIMEN / Unknown Venipuncture / Unknown 12/30/2018 6:15 AM CDT 12/30/2018 3:12 PM CDT Narrative [facility] - 12/30/2018 3:46 PM CDT INR INTERPRETATION For most therapy and prophylaxis INR 2.0 - 3.0 For post-myocardial infarction (MA) and mechanical heart valves INR 2.5 - 3.5 us Atif Dorado MD LAB - COAGULATION ORDERABLES nal Result [facility] [address] documented in this encounter Visit Diagnoses Not on filedocumented in this encounter Care Teams Sewage Plant Operator Relationship Specialty Start Date End Date Nathaniel Hartman MD [address] [place] [phone] PCP - General Family Medicine 03/11/16 documented as of this encounter
--- OUTSIDE RECORDS SUMMARY | 2025-04-25 15:36 | XMS_ITS | Encounter Summary ---
Author Organization [facility] Address [facility] [place] [address] Care Team Providers Care Wooden Furniture Polisher Name Role Phone Nathaniel Hartman MD Primary Care Provider [phone] Encounter Details Date Type Department Care Team (Late st Contact Info) Description 03/12/2019 Abstract [facility] CONVERSION [address] [place] [address] , Generic Conversion, Social History Tobacco Use Types Packs/Day Years Used Date Smoking Tobacco: Never Assessed Comments Unknown Sex and Gender Information Value Date Recorded Sex Assigned at Not on file Legal Sex Female 9:15 PM A AND P TECHNICIAN Gender Identity Not on file Sexual Orientation Not on file documented as of this encounter Plan of Treatment Not on file documented as of this encounter Visit Diagnoses Not on filedocumented in this encounter Care Teams Wooden Furniture Polisher Relationship Specialty Start Date End Date Nathaniel Hartman MD [address] [place] [phone] PCP - General FAMILY PRACTICE 07/21/19 documented as of this encounter
--- OUTSIDE RECORDS SUMMARY | 2025-04-25 15:36 | XMS_ITS | Clinical Summary ---
Author Organization [facility] Address [facility] [place] [address] Care Team Providers Care Group Home Paraprofessional Name Role Phone Nathaniel Hartman MD Primary Care Provider [phone] Social History Tobacco Use Types Packs/Day Years Used Date Smoking Tobacco: Never Assessed Comments Unknown Sex and Gender Information Value Date Recorded Sex Assigned at Not on file Legal Sex Female 9:15 PM CASHIER ASSOCIATE Gender Identity Not on file Sexual Orientation [...] normal. Ordered By: ASHLEY GHOSH Interpreted By: Rcihard Rae MD, 08/05/2022 11:22 AM Narrative 08/05/2022 [...] Rae MD, 08/05/2022 11:22 AM Ashley Ghosh JUNIOR WEB DEVELOPER DEXA Fin al Result from Last 3 Months or Most Recently Relevant to Health Maintenance Insurance MEDICARE [facility] MEDICARE Care Teams Group Home Paraprofessional Relationship Specialty Start Date End Date Nathaniel Hartman MD [address] [place] [phone] PCP - General FAMILY PRACTICE 07/21/19
--- OUTSIDE RECORDS SUMMARY | 2025-04-25 15:36 | XMS_ITS | Encounter Summary ---
Author Organization [facility] Address [address] [facility] [place] [address] Phone Care Team Providers Care Heel Stainer Name Role Phone Surya Suárez Jigna [facility] Primary Care Provider [phone] Reason for Visit * Reason Comments Medication Refill Encounter Details Date Type Department Care Team (Late st Contact Info) Description 01/10/2022 Refill [facility] - Endocrinology - [place] [address] [place] [phone] Rosalee Rodríguez MD [address] [phone] Medication Refill Social History Tobacco Use Types [...] on filedocumented in this encounter Care Teams Heel Stainer Relationship Specialty Start Date End Date Surya Suárez, [facility] [address] [place] [phone] PCP - General Family Medicine 10/13/21 documented as of this encounter
--- OUTSIDE RECORDS SUMMARY | 2025-04-25 15:36 | XMS_ITS | Clinical Summary ---
Author Organization [facility] Address [address] [place] [address] Phone Care Team Providers Care Director Of Government Sales Name Role Phone Surya Suárez Jigna CRAIN Primary Care Provider [phone] Allergies No known active allergies Medications hydroCHLOROthiaz [...] g 2 Active Lancets (OneTouch Delica Plus [id number]) Misc TEST ONCE DAILY 100 Each 3 2 Active Benzonatate (TESSALON PERLES PO) Take 100 mg by mouth 3 times daily as needed for Other (cough). [id number] Active acetaminophen (TYLENOL) 325 MG TabletIndication s:Fever,Pain [...] 97.5 kg (215 lb) 11/21/2021 11:22 AM SECURITY SHIFT MANAGER Height 157.5 cm (5' 2) 11/26/2021 2:19 PM SECURITY SHIFT MANAGER Body Mass Index 38.09 11/21/2021 11:22 AM SECURITY SHIFT MANAGER Plan of Treatment Health Maintenance Due Date [...] age to complete this topic Insurance MEDICARE [facility] on file Advance Directives Documents on File Type Date Recorded Patient Multimedia Educational Specialist Expl anation Power of Licensed Insurance Agent for Health Care 10/30/2021 1:38 PM POA-HC, [...] measures to stabilize the patient. Care Teams Director Of Government Sales Relationship Specialty Start Date End Date Surya Suárez, PAC [address] [place] [address] PCP - General Family Medicine 10/13/21
--- OUTSIDE RECORDS SUMMARY | 2025-04-25 15:36 | XMS_ITS | Clinical Summary ---
Author Organization [facility] [address] Address [address] [place] [address] Phone Care Team Providers Care Talent Development Specialist Name Role Phone Surya Suárez Primary [...] Nasal saline spray (Simply saline, Little Remedies, [place], [place]) 2 second sprays or 2 squeezes into [...] Follow up in 10 days to recheck [place] for pain as needed Tylenol as well [...] treatment. Assessment & Plan (10/18/2020 1:46 PM OPTICAL LENS MANUFACTURING TECH): TSH Thyroid Ultrasound - call with results [...] Type Department Care Team Description 03/27/2025 Telephone [facility] Allergy and Immunology [address] [facility] [address] [place] [address] Marek Nielsen MD 02/17/2025 Results Follow-Up [facility] Pulmonary at [address] [place] [address] Igor Avalos, DO Immunoglobulin IgG subclasses 02/16/2025 2:00 PM CDT Lab [address] [address] Low serum IgG for age 0502/16/2025 12:45 PM CDT - 02/16/2025 11:59 PM CDT Hospital Encounter [facility] Respiratory [address] [place] [address] Chronic obstructive pulmonary disease, unspecified COPD type (HCC) Discharge Disposition: Discharge to home or self care 01/26/2025 Results Follow-Up [facility] Pulmonary at [address] [place] [address] Igor Avalos, IgE, IgM, IgG, Additional followed-up [...] on file Legal Sex Female 4:05 AM OPTICAL LENS MANUFACTURING TECH Gender Identity Female 02/26/2023 1:42 PM CDT [...] CDT) IgG 456(L) 767 - 1590 mg/dL [place] ref Lab IgG, fraction 1 279(L) 341 - 894 mg/dL [facility] (AYAAN) IgG, fraction 2 136(L) 171 - 632 mg/dL [facility] (AYA[facility]) IgG, fraction 3 105.3 18.4 - 106.0 mg/dL [facility] (AY[facility]) IgG, fraction 4 3.6 2.4 - 121.0 mg/dL [facility] (AYAAN) Comment: Test Performed by: [facility] [place] [address] Pipe Cleaning Machine Operator: Odell Valentin Ph.D.; CLIA# [id number] Blood 02/16/2025 1:3 8 PM CDT 02/16/2025 1:55 PM CDT Igor Avalos DO LAB BLOOD ORDERABLES Cristina jenni Result [facility] (AYAAN) 1 [facility] [place] [address] [place] ref Lab * Dexa Axial Skeleton Bone Density 1 or 2 Site (12/28/2024 2:40 PM CDT) Anatomical Region Laterality Modality Body N/A Other 12/31/2024 12:0 5 PM CDT Narrative 12/31/2024 12:06 PM CDT EXAM DESCRIPTION: DEXA AXIAL SKELETON BONE DENSITY 1 OR MORE SITES REASON FOR STUDY: 84 y/o year old F with given history of: Post menopausal Screening Physician Practice Manager/Model: [employer] SL (S/N 55771) Facility LSC value of 0.022 for the [...] Keith Padilla M.D. MF: BRIANNA Report ID: [id number] Reading Location: [id number] Procedure Note Keith Padilla MD - 12/31/2024 EXAM DESCRIPTION: DEXA AXIAL SKELETON BONE DENSITY 1 OR MORE SITES REASON FOR STUDY: 84 y/o year old F with given history of: Post menopausal Screening Physician Practice Manager/Model: [employer] SL (S/N [id number]) Facility LSC value of 0.022 for the [...] Keith Padilla M.D. MF: BRIANNA Report ID: [id number] Reading Location: [place] [address] Surya OLVERA IMG DXA PROCEDURES Cristina l Result from Last 3 Months or Most Recently Relevant to Health Maintenance Insurance MEDICARE AETNA MEDICARE [place] [facility] [place] [facility] MEDICARE [facility] [place] [address] Advance Directives For more information, please contact: [phone] * Full Code (Latest Code Status on [...] 2:45 PM 11/16/2017 9:03 PM Care Teams Talent Development Specialist Relationship Specialty Start Date End Date Surya Suárez PA [address] [place] [phone] PCP - General Physician Welder Helper 10/18/20
[2025-04-25 15:38] LABS: INR 1.0; Prothrombin Time 11.0 Seconds (9.50-12.1)
[2025-04-25 15:44] LABS: NT Pro B Type Natriuretic Pept 73 pg/mL (19.9-100); Troponin I < 0.012 ng/mL (0.000-0.034)
[2025-04-25] MEDS: cefTRIAXone 1 GM in SODIUM CHLORIDE 0.9% IV 50 ML 100 ML IVPB (15:51)
--- NOTE | 2025-04-25 15:55 | ED_ITS ---
HPI - SOB/Dyspnea General Chief Complaint: Shortness of Breath/Dyspnea Stated Complaint: shortness of breath Time Seen by Provider: 04/25/25 14:47 Source: patient Mode of arrival: EMS Limitations: no limitations History of Present Illness HPI Narrative: 84-year-old with a history of hypertension, COPD on home oxygen bedtime, ankylosing spondylosis here with the complaints of cough for for past week or more. Denies any chest pain. Cough is non Productive. denies any nausea vomiting or abdominal pain Related Data Home Medications ?Medication ?Instructions ?Recorded ?Confirmed ?Last Taken ?Type ezetimibe 10 mg tablet 10 mg PO DAILY 01/29/23 02/27/23 Unknown History hydrochlorothiazide 25 mg tablet 25 mg PO DAILY 01/29/23 02/27/23 Unknown History hydroxychloroquine 200 mg tablet 200 mg PO BID 01/29/23 02/27/23 Unknown History losartan 25 mg tablet 25 mg PO DAILY 01/29/23 02/27/23 Unknown History multivitamin 1 tablet PO DAILY 01/29/23 02/27/23 Unknown History omega 1-pzd-cyk-fish oil 60 mg-90 1 cap PO DAILY 01/29/23 02/27/23 Unknown History mg-500 mg capsule (Fish Oil) omeprazole 20 mg capsule,delayed 20 mg PO BID 01/29/23 02/27/23 Unknown History release spironolactone 25 mg tablet 25 mg PO DAILY 01/29/23 02/27/23 Unknown History ezetimibe 10 mg tablet 10 mg PO DAILY 02/27/23 02/27/23 Unknown History Allergies Allergy/AdvReac Type Severity Reaction Status Date / Time aluminum Allergy Unknown Rash Verified 04/25/25 14:56 Review of Systems 2 Review of Systems: All systems reviewed & are unremarkable except as noted in HPI and below Constitutional: Constitutional: Reports no additional constitutional complaints Eyes: Eyes: Reports no additional eye complaints ENT: Reports system reviewed and no additional complaints, except as documented Cardiovascular: Cardiovascular: Reports no additional cardiovascular complaints Respiratory: Respiratory: Reports as per HPI Gastrointestinal: Gastrointestinal: Reports no additional gastrointestinal complaints Genitourinary: Genitourinary: Reports no additional female genitourinary complaints Musculoskeletal: Musculoskeletal: Reports no additional musculoskeletal complaints Integumentary/Breasts: Skin/Breast: Reports system reviewed and no additional complaints, except as docu Neurologic: Reports system reviewed and no additional complaints, except as documented PMFSH Past Medical History Medical History Ankylosing spondylitis Ulcerative colitis Hypertension COPD (chronic obstructive pulmonary disease) Hx of acute arthritis Family History Family History Mother Family history of osteoporosis Family history of Parkinson's disease Sibling Family history of pancreatic cancer Family history of malignant neoplasm of urinary bladder Social History Social History Smoking status: Never smoker Alcohol intake: never Substance use: never Substance use type: does not use Exam 2 Narrative: GENERAL: Well-appearing, well-nourished, and in no acute distress. HEAD: Normocephalic, atraumatic. EYES: PERRLA and EOMI. ENT: Nares clear, no rhinorrhea or epistaxis. Mucous membranes moist. NECK: Supple. CHEST: Bilateral mild wheeze No respiratory distress. HEART: Regular rate and rhythm. No murmur heard. Normal peripheral pulses. ABDOMEN: Soft, nontender, nondistended, normal active bowel sounds. EXTREMITIES: Normal range of motion. No edema. SKIN: Warm, dry, no rash. NEURO: No focal deficits. Alert and oriented x3. PSYCH: Normal mood and affect. Course Course Emergency Course: patient feeling much better after neb treatment. I discussed lab work and x- ray findings with the patient and the family agreeable with admission. Did start her on IV Rocephin and doxy after obtaining blood cultures for pneumonia. Vital Signs Vital signs: Vital Signs Temperature 36.6 C 04/25/25 14:35 Pulse Rate 98 04/25/25 14:35 Respiratory Rate 28 H 04/25/25 14:35 Blood Pressure 115/87 04/25/25 14:35 Pulse Oximetry 97 04/25/25 14:35 Oxygen Delivery Room Air 04/25/25 14:35 Temperature 36.6 C 04/25/25 14:35 Pulse Rate 94 04/25/25 15:18 Respiratory Rate 20 04/25/25 15:18 Blood Pressure 115/87 04/25/25 14:35 Pulse Oximetry 96 04/25/25 15:18 Oxygen Delivery Room Air 04/25/25 14:35 Oxygen Flow Rate 0 04/25/25 15:18 MDM - SOB/Dyspnea MDM Narrative Medical decision making narrative: 84-year-old with a history of COPD no having significant which is nonproductive no fever will obtain stat chest x-ray, lab work and given nebulizer treatment. Differential Diagnosis Differential diagnosis: Likely acute exacerbation of chronic obstructive airways disease, congestive heart failure and community acquired pneumonia Medical Records Attestation: I reviewed the patient's medical records. Lab Data Attestation: I reviewed the patient's lab results. 04/25/25 15:08 04/25/25 15:08 Labs: Lab Results 04/25/25 Range/Units 15:08 WBC 7.7 (4.8-10.8) K/mm3 RBC 4.19 L (4.20-5.40) M/mm3 Hgb 12.4 (11.7-13.8) g/dL Hct 37.7 (35.0-42.0) % MCV 90.0 (78.0-102.0) fL MCH 29.6 (27.0-31.0) pg MCHC 32.9 (32-36) g/dL RDW 14.5 H (11.6-14.4) % Plt Count 292 (150-420) K/mm3 MPV 9.1 L (9.2-11.8) fl Immature Gran % (Auto) 1.4 H (0.0-0.0) % Neut % (Auto) 52.0 (50.0-70.0) % Lymph % (Auto) 34.0 (18.0-42.0) % Imperial % (Auto) 8.3 (2.0-11.0) % Eos % (Auto) 3.1 (1.0-6.0) % Baso % (Auto) 1.2 H (0.0-1.0) % Lymph # (Auto) 2.63 (1.10-4.50) K/mm3 Imperial # (Auto) 0.64 (0.10-0.90) K/mm3 Eos # (Auto) 0.24 (0.02-0.50) K/mm3 Baso # (Auto) 0.09 (0.00-0.10) K/mm3 Abs Immat Gran (auto) 0.11 H (0.00-0.00) K/mm3 Absolute Neuts (auto) 4.02 (1.70-7.20) K/mm3 Absolute Nucleated RBC 0.00 (0.00-0.00) K/mm3 Nucleated RBC % 0.0 (0-0.0) % PT 11.0 (9.50-12.1) Seconds INR 1.0 Sodium 139 (137-145) mmol/L Potassium 3.4 (3.4-5.0) mmol/L Chloride 105 (98-107) mmol/L Carbon Dioxide 23 (22-30) mmol/L Anion Gap 11 (4-12) mmol/L BUN 22 H (7-17) mg/dL Creatinine 0.81 (0.7-1.0) mg/dL Estim Creat Clear Calc 48 ml/min Estimated GFR > 60 (59 - ) Glucose 109 (65-110) mg/dL Calculated Osmolality 292 (285-295) mOsm/kg Lactic Acid 2.6 H (0.4-2.0) mmol/L Calcium 9.1 (8.4-10.2) mg/dL Total Bilirubin 0.7 (0.2-1.3) mg/dL AST 31 (14-36) U/L ALT 26 (6-35) U/L Alkaline Phosphatase 75 (38-126) U/L Troponin I < 0.012 (0.000-0.034) ng/mL NT-Pro-B Natriuret Pep 73 (19.9-100) pg/mL Total Protein 7.1 (6.3-8.2) g/dL Albumin 4.2 (3.5-5.1) g/dL Influenza A (RT-PCR) Pending Influenza B (RT-PCR) Pending RSV (RT-PCR) Pending SARS-CoV-2 RNA (RT-PCR) Pending Imaging Data Radiologist's impression: ITS Impressions Chest X-Ray 04/25/25 15:31 IMPRESSION: Bibasilar airspace disease, right greater than left. Findings can represent pneumonia in appropriate clinical settings. Short-term follow-up chest radiograph is recommended after appropriate clinical therapy. ECG Data EKG #1: ECG completion date: 04/25/25 ECG completion time: 15:17 EKG Interpretation: normal rate (94), no ectopy, no ST changes, normal QRS and NL axis Discharge Plan Discharge Clinical Impression: Pneumonia Qualifiers: Pneumonia type: due to unspecified organism Laterality: bilateral Lung location: lower lobe of lung Qualified Code(s): J18.9 - Pneumonia, unspecified organism Patient Disposition: Still a Patient Condition: Stable Time of Disposition: 15:56
[2025-04-25 15:59] LABS: Influenza A QL RT-PCR Negative (Negative); Influenza B QL RT-PCR Negative (Negative); RSV RNA, RT-PCR Negative (Negative); SARS-CoV-2 RNA PCR Negative (Negative)
[2025-04-25] MEDS: IPRATROPIUM 0.5 MG/ALBUTEROL SULFATE 2.5 MG AMPUL.NEB 3 ML (16:03)
[2025-04-25] MEDS: DOXYCYCLINE IV 100 MG in SODIUM CHLORIDE 0.9% IV 100 ML IVPB (16:45)
--- NOTE | 2025-04-25 16:45 | ADMGEN ---
This patient, Kelley Bird, was admitted to 2nd Floor Room 208-1. Patient/family oriented to hospital policies and general routines including ID bracelet, bed and alarms, visiting hours, pain management, procedures, bathroom and other care routines, personal items, smoking policy, room service/diet, and visiting hours. Information on how to activate the Rapid Response Team has been discussed. Patient/Family are encouraged to report perceived risks to care and to ask questions if they do not understand what they are told or what they should do.
[2025-04-25] MEDS: IPRATROPIUM BR 0.02% INH SOLN 0.5 MG/2.5 ML VIAL INHALATION ×2 (18:30→23:50)
[2025-04-25] MEDS: ALBUTEROL SULFATE NEB 2.5 MG/3 ML INH INHALATION ×2 (18:30→23:50)
[2025-04-25] MEDS: guaiFENesin 12 HR 600 MG TABCR 1200 MG PO (22:30)
[2025-04-25] MEDS: HYDROXYCHLOROQUINE SULFATE 200 MG TABLET PO (22:30)
--- NOTE | 2025-04-25 22:44 | PC.NURSE ---
3 attempts made for new IV placement. Unable to do so, spoke w/Luz in ED for assistance from ED. ED stated they will come and attempt an IV.
[2025-04-25] MEDS: AZITHROMYCIN IV 500 MG in SODIUM CHLORIDE 0.9% IV 250 ML IVPB (23:51)
[2025-04-26] VITALS: BP 133/49; PULSE 82; RESP 20; TEMP 36.8; O2SAT 98
[2025-04-26 05:29] LABS: Hematocrit 35.1 % (35.0-42.0); Hemoglobin 11.4 g/dL (11.7-13.8); Immature Granulocyte Percent A 1.3 % (0.0-0.0); Lymphocytes Absolute Auto 2.71 K/mm3 (1.10-4.50); Mean Corpuscular HGB Conc 32.5 g/dL (32-36); Mean Corpuscular Hemoglobin 29.6 pg (27.0-31.0); Mean Corpuscular Volume 91.2 fL (78.0-102.0); Nucleated Red Blood Cells Absolute Auto 0.00 K/mm3 (0.00-0.00); Nucleated Red Blood Cells Perc 0.0 % (0-0.0); Platelet Count Result 241 K/mm3 (150-420); Red Blood Count 3.85 M/mm3 (4.20-5.40); White Blood Count 9.1 K/mm3 (4.8-10.8)
[2025-04-26 05:30] VITALS: O2SAT 99
[2025-04-26 05:43] LABS: Anion Gap 7 mmol/L (4-12); Blood Urea Nitrogen 18 mg/dL (7-17); Calcium 8.7 mg/dL (8.4-10.2); Carbon Dioxide 26 mmol/L (22-30); Chloride 106 mmol/L (98-107); Estimated CRCL calculation 59 ml/min; Estimated Glomerular Filt Rate > 60; Glucose 86 mg/dL (65-110); Osmolality Calculated 288 mOsm/kg (285-295); Potassium 3.3 mmol/L (3.4-5.0); Sodium 139 mmol/L (137-145)
[2025-04-26 05:52] VITALS: PULSE 74; RESP 22; O2SAT 99
[2025-04-26] MEDS: IPRATROPIUM BR 0.02% INH SOLN 0.5 MG/2.5 ML VIAL INHALATION (05:52)
[2025-04-26] MEDS: ALBUTEROL SULFATE NEB 2.5 MG/3 ML INH INHALATION (05:52)
[2025-04-26 06:06] VITALS: PULSE 82; RESP 20; O2SAT 100
[2025-04-26 07:57] VITALS: BP 127/56; PULSE 84; RESP 20; TEMP 36.6; O2SAT 100
[2025-04-26] MEDS: ENOXAPARIN 40 MG/0.4 ML SYRINGE SUB-Q (09:17)
[2025-04-26] MEDS: SPIRONOLACTONE 25 MG TABLET PO (09:17)
[2025-04-26] MEDS: MULTIVITAMINS THERAPEUTIC TAB (*BKC) 1 TABLET PO (09:18)
[2025-04-26] MEDS: guaiFENesin 12 HR 600 MG TABCR 1200 MG PO (09:18)
[2025-04-26] MEDS: HYDROXYCHLOROQUINE SULFATE 200 MG TABLET PO (09:18)
[2025-04-26] MEDS: EZETIMIBE 10 MG TABLET PO (09:19)
[2025-04-26] MEDS: LOSARTAN POTASSIUM 25 MG TABLET PO (09:19)
[2025-04-26] MEDS: OMEGA 3 POLYUNSAT FATTY ACIDS 1 GM CAP PO (09:19)
--- NOTE | 2025-04-26 10:31 | PM.DS ---
DS: Admitting Diagnosis Discharge Date 04/26/25 DS: Summary Hospital Course Reason for hospitalization: Shortness of breath , pneumonia Hospital Course: Chief Complaint: Shortness of Breath/Dyspnea Stated Complaint: shortness of breath Time Seen by Provider: 04/25/25 14:47 Source: patient Mode of arrival: EMS Limitations: no limitations History of Present Illness HPI Narrative: 84-year-old with a history of hypertension, COPD on home oxygen bedtime, ankylosing spondylosis here with the complaints of cough for for past week or more. Denies any chest pain. Cough is non Productive. denies any nausea vomiting or abdominal pain Related Data Time Spent with Patient Time attestation: Total time spent providing and/or coordinating discharge services: Exam Narrative: GENERAL: Well-appearing, well-nourished, and in no acute distress. HEAD: Normocephalic, atraumatic. EYES: PERRLA and EOMI. ENT: Nares clear, no rhinorrhea or epistaxis. Mucous membranes moist. NECK: Supple. CHEST: Bilateral mild wheeze No respiratory distress. HEART: Regular rate and rhythm. No murmur heard. Normal peripheral pulses. ABDOMEN: Soft, nontender, nondistended, normal active bowel sounds. EXTREMITIES: Normal range of motion. No edema. SKIN: Warm, dry, no rash. NEURO: No focal deficits. Alert and oriented x3. PSYCH: Normal mood and affect. DS: Data Data Completed and Pending Labs on day of discharge: Labs from last 24 hours 04/26/25 04/25/25 04/25/25 05:14 17:45 15:08 WBC 9.1 7.7 RBC 3.85 L 4.19 L Hgb 11.4 L 12.4 Hct 35.1 37.7 MCV 91.2 90.0 MCH 29.6 29.6 MCHC 32.5 32.9 RDW 14.5 H 14.5 H Plt Count 241 292 MPV 9.4 9.1 L Immature Gran % (Auto) 1.3 H 1.4 H Neut % (Auto) 55.7 52.0 Lymph % (Auto) 29.8 34.0 [place] % (Auto) 7.7 8.3 Eos % (Auto) 4.5 3.1 Baso % (Auto) 1.0 1.2 H Lymph # (Auto) 2.71 2.63 [place] # (Auto) 0.70 0.64 Eos # (Auto) 0.41 0.24 Baso # (Auto) 0.09 0.09 Abs Immat Gran (auto) 0.12 H 0.11 H Absolute Neuts (auto) 5.06 4.02 Absolute Nucleated RBC 0.00 0.00 Nucleated RBC % 0.0 0.0 PT 11.0 INR 1.0 Sodium 139 139 Potassium 3.3 L 3.4 Chloride 106 105 Carbon Dioxide 26 23 Anion Gap 7 11 BUN 18 H 22 H Creatinine 0.67 L 0.81 Estim Creat Clear Calc 59 48 Estimated GFR > 60 > 60 Glucose 86 109 Calculated Osmolality 288 292 Lactic Acid 1.8 2.6 H Calcium 8.7 9.1 Total Bilirubin 0.7 AST 31 ALT 26 Alkaline Phosphatase 75 Troponin I < 0.012 NT-Pro-B Natriuret Pep 73 Total Protein 7.1 Albumin 4.2 Influenza A (RT-PCR) Negative Influenza B (RT-PCR) Negative RSV (RT-PCR) Negative SARS-CoV-2 RNA (RT-PCR) Negative Discharge Plan Discharge Attending physician on discharge: Arnaud Cunningham Discharging Clinician: Jeronimo Bynum Anticipated Discharge Date/Time: 04/26/25 10:25 Patient Disposition: Home Activity: february shower Diet: as tolerated, regular and heart healthy Wound Care Instructions: follow printed instructions Discharge Instructions: Happy Birthday Have a awesome day Use your oxygen for the next few days Use your nebulzier for the next few days Follow up with your primary care provider and avoid smoke Patient Instructions: Antibiotic Form, Guaifenesin (By mouth), Azithromycin (By mouth), Fall Prevention for Older Adults (DC), COPD (Chronic Obstructive Pulmonary Disease) (GEN), Bacterial Pneumonia (DC), Dyspnea Scale and Exercise (DC) Patient Language: Macedonian Stand Alone Forms: General Discharge Information Follow-up/Referrals: Surjit,Maira Carroll MD [Non-Staff] - 05/01/25 1:20 pm Discharge Medications: New guaifenesin [Mucus Relief ER] 600 mg Tablet Extended Release 12hr 1,200 mg PO Q12HR Qty: 10 0RF azithromycin [Zithromax Z-Mynor] 250 mg tablet See Rx Instructions .ROUTE .COMPLEX Qty: 6 0RF Rx Instructions: For 250 mg dose pack: take 500 mg today (day 1), then 250 mg for 4 days (days 2-5) Continued ezetimibe 10 mg tablet 10 mg PO DAILY hydrochlorothiazide 25 mg tablet 25 mg PO DAILY hydroxychloroquine 200 mg tablet 200 mg PO BID losartan 25 mg tablet 25 mg PO DAILY omeprazole 20 mg capsule,delayed release(DR/EC) 20 mg PO DAILY spironolactone 25 mg tablet 25 mg PO DAILY multivitamin Tablet 1 tablet PO DAILY omega 7-bug-fbk-fish oil [Fish Oil] 60-90-500 mg capsule 1 cap PO DAILY Date of admission: 04/25/25 15:51 Primary Care Provider: UNKNOWN,DOCTOR Admitting Provider: Arnaud Cunningham Attending physician on admission: Arnaud Cunningham Condition: Stable
[2025-04-26] MEDS: cefTRIAXone 1 GM in SODIUM CHLORIDE 0.9% IV 50 ML 100 ML IVPB (11:56)
--- NOTE | 2025-04-26 14:05 | PC.NURSE ---
Discharge instructions reviewed with daughter, son in law and patient, patient oriented to self and place, short term memory affected, daughter with no questions regarding new medications or discharge instructions, given number for questions if they arise once home. Daughter agreeable to discharge plan. All personal items returned to patient
--- NOTE | 2025-04-28 10:39 | PC.NURSE ---
Discharge call back completed. Spoke with Kelley and he daughter today. Very happy with stay on 2nd floor and with ABILIO Abdi for explaining discharge instructions so well. They have no other questions or concerns.
--- NOTE | 2025-05-24 06:09 | PM.SD2 ---
Same Day Admit/Disch: HPI History of Present Illness Chief complaint: pneumonia Narrative: Kelley Bird is a 85 year old female Chief Complaint: Shortness of Breath/Dyspnea Stated Complaint: shortness of breath Time Seen by Provider: 04/25/25 14:47 Source: patient Mode of arrival: EMS Limitations: no limitations History of Present Illness HPI Narrative: 84-year-old with a history of hypertension, COPD on home oxygen bedtime, ankylosing spondylosis here with the complaints of cough for for past week or more. Denies any chest pain. Cough is non Productive. denies any nausea vomiting or abdominal pain PMFSH Past Medical History Medical History Ankylosing spondylitis Ulcerative colitis Hypertension COPD (chronic obstructive pulmonary disease) Hx of acute arthritis Family History Family History Mother Family history of osteoporosis Family history of Parkinson's disease Sibling Family history of pancreatic cancer Family history of malignant neoplasm of urinary bladder Social History Social History Smoking status: Never smoker Alcohol intake: never Substance use: never Substance use type: does not use Do You Feel Safe in your Home?: Yes Lack of Transportation: No Lack of Food: Never True Current Housing: I Have Housing Concerned About Future Housing: No Difficulty Paying Gas/Electric Bills: No Difficulty Paying for Meds: No Currently Unemployed: No Education: High School Diploma/GED Difficulty w/ Childcare or Family Care: No Spiritual care concerns: No Same Day Admit/Disch: Med Pre-admit Medications Home Medications ?Medication ?Instructions ?Recorded ?Confirmed ?Type hydrochlorothiazide 25 mg tablet 25 mg PO DAILY 01/29/23 04/25/25 History hydroxychloroquine 200 mg tablet 200 mg PO BID 01/29/23 04/25/25 History losartan 25 mg tablet 25 mg PO DAILY 01/29/23 04/25/25 History multivitamin 1 tablet PO DAILY 01/29/23 04/25/25 History omega 3-mfr-bsp-fish oil 60 mg-90 1 cap PO DAILY 01/29/23 04/25/25 History mg-500 mg capsule (Fish Oil) omeprazole 20 mg capsule,delayed 20 mg PO DAILY 01/29/23 04/25/25 History release spironolactone 25 mg tablet 25 mg PO DAILY 01/29/23 04/25/25 History ezetimibe 10 mg tablet 10 mg PO DAILY 02/27/23 04/25/25 History azithromycin 250 mg tablet See Rx Instructions PO .COMPLEX #6 04/26/25 Rx (Zithromax Z-Mynor) tabs guaifenesin 600 mg tablet, 1,200 mg (2 x 600 mg) PO Q12HR #10 04/26/25 Rx extended release 12 hr (Mucus tabs Relief ER) Review of Systems Review of Systems cough , pneumonia All systems reviewed & are unremarkable except as noted in HPI and below Exam Narrative: GENERAL: Well-appearing, well-nourished, and in no acute distress. HEAD: Normocephalic, atraumatic. EYES: PERRLA and EOMI. ENT: Nares clear, no rhinorrhea or epistaxis. Mucous membranes moist. NECK: Supple. CHEST: Bilateral mild wheeze No respiratory distress. HEART: Regular rate and rhythm. No murmur heard. Normal peripheral pulses. ABDOMEN: Soft, nontender, nondistended, normal active bowel sounds. EXTREMITIES: Normal range of motion. No edema. SKIN: Warm, dry, no rash. NEURO: No focal deficits. Alert and oriented x3. PSYCH: Normal mood and affect. DS: Summary Hospital Course Reason for hospitalization: Shortness of breath , pneumonia Hospital Course: This is 85 year that came in with increase shortness of breath. While she was here it was found that she has pneumonia and is being treated with oxygen and around the clock breathing treatment with IV Steroids and antibiotics. Patient is feeling a lot better and she is off of the oxygen although she has oxygen at home as well as a nebulizer. Patient is anxiously anticipating discharge home as she feels better and her birthday plan. Patient is slowly ambulating without increased shortness of breath with activity. She generally use oxygen as needed as I have encourage patient to use her oxygen regularly for the next couple of day and nebulizer instead of her inahler. Patient will follow up with her primary care provider and will return if she get worse Time Spent with Patient Time attestation: Total time spent providing and/or coordinating discharge services: DS: Admitting Diagnosis Discharge Date 04/26/25 Admitting Diagnosis Pneumonia, Shortness of breath DS: Discharge Diagnosis Discharge Diagnosis (1) Pneumonia: Qualifiers: Laterality: bilateral Lung location: lower lobe of lung Pneumonia type: due to unspecified organism Qualified Code(s): J18.9 - Pneumonia, unspecified organism Code(s): J18.9 - Pneumonia, unspecified organism Status: Acute Assessment and Plan: Continue nebulizer at least tid for the next couple of day Continue your oral antibiotics Continue oral steroids Avoid being out in the heat to much Make sure to use your oxygen on a regular basis for the next few days (2) COPD (chronic obstructive pulmonary disease): Code(s): J44.9 - Chronic obstructive pulmonary disease, unspecified Status: Acute Assessment and Plan: See #1 (3) Ulcerative colitis: Code(s): K51.90 - Ulcerative colitis, unspecified, without complications Status: Acute Assessment and Plan: <del>resolved</del> resolved Discharge Plan Discharge Attending physician on discharge: Arnaud Cunningham Discharging Clinician: Jeronimo Bynum Anticipated Discharge Date/Time: 04/26/25 10:25 Patient Disposition: Home Activity: may shower Diet: as tolerated, regular and heart healthy Wound Care Instructions: follow printed instructions Discharge Instructions: Happy Birthday Have a awesome day Use your oxygen for the next few days Use your nebulzier for the next few days Follow up with your primary care provider and avoid smoke Patient Instructions: Antibiotic Form, Guaifenesin (By mouth), Azithromycin (By mouth), Fall Prevention for Older Adults (DC), COPD (Chronic Obstructive Pulmonary Disease) (GEN), Bacterial Pneumonia (DC), Dyspnea Scale and Exercise (DC) Patient Language: Kuwaiti Stand Alone Forms: General Discharge Information Follow-up/Referrals: Surjit,Maira Carroll MD [Non-Staff, Unknown] - 05/01/25 1:20 pm Discharge Medications: New guaifenesin [Mucus Relief ER] 600 mg Tablet Extended Release 12hr 1,200 mg PO Q12HR Qty: 10 0RF azithromycin [Zithromax Z-Mynor] 250 mg tablet See Rx Instructions .ROUTE .COMPLEX Qty: 6 0RF Rx Instructions: For 250 mg dose pack: take 500 mg today (day 1), then 250 mg for 4 days (days 2-5) Continued ezetimibe 10 mg tablet 10 mg PO DAILY hydrochlorothiazide 25 mg tablet 25 mg PO DAILY hydroxychloroquine 200 mg tablet 200 mg PO BID losartan 25 mg tablet 25 mg PO DAILY omeprazole 20 mg capsule,delayed release(DR/EC) 20 mg PO DAILY spironolactone 25 mg tablet 25 mg PO DAILY multivitamin Tablet 1 tablet PO DAILY omega 2-mtv-ubc-fish oil [Fish Oil] 60-90-500 mg capsule 1 cap PO DAILY Date of admission: 04/25/25 15:51 Primary Care Provider: UNKNOWN,DOCTOR Admitting Provider: Arnaud Cunningham Attending physician on admission: Arnaud Cunningham Condition: Stable
== END 2025-04-26 14:05 | disposition home or self-care (01) ==
LOC: CHSED 15:34 → CHS2ND 16:00
PROVIDERS: Admitting Provider Internal Medicine; Emergency Provider Family Medicine; Visit Provider Internal Medicine
DX: J18.9 Pneumonia, unspecified organism (principal); J44.0 Chronic obstructive pulmonary disease with (acute) lower respiratory infection; Z99.81 Dependence on supplemental oxygen; M45.9 Ankylosing spondylitis of unspecified sites in spine; K51.90 Ulcerative colitis, unspecified, without complications; Z20.822 Contact with and (suspected) exposure to COVID-19; Z79.899 Other long term (current) drug therapy; I10 Essential (primary) hypertension
CPT/HCPCS: 36415; 71045; 80048; 80053; 83605; 83880; 84484; 85025; 85610; 87040; 87637; 93005; 94640; 96365; 96366; 96367; 96368; 96372; 96375; 99285; A9270; G0378; J0456; J0696; J1650; J7050